=== PATIENT | male | born 1970 | race Caucasian/White ===

== ENCOUNTER 2020-05-05 04:38 | Inpatient (IN) | payer OTHER ==
[2020-05-05] MEDS ORDERED: DILTIAZEM DRIP BOLUS FROM BAG 1 MG SOLN IV ONE ×2 (05:00→06:10)
--- NOTE | 2020-05-05 05:00 | ED ---
Arrhythmia/Palpitations HPI - General Chief Complaint: Arrhythmia/Palpitations Stated Complaint: Irregular Heartbeat Time Seen by Provider: 05/05/20 04:42 Source: patient, RN notes reviewed, old records reviewed Mode of arrival: wheelchair - History of Present Illness Initial Comments: This is a 49-year-old male DF for evaluation patient Dese with multiple significantly elevated heart rate extremity edema swelling and weeping from both wounds. Patient thinks he may get more visible when he did change his socks. Patient is limited pain to both legs but does have diminished feeling, increased swelling and redness. Shortness of breath with elevated heart rate tonight. MD Complaint: rapid heart beat, "heart racing", palpitations, atrial fibrillat ion -: hour(s) Context: occurred during rest Arrhythmia History: atrial fibrillation Associated Symptoms: chest pain, shortness of breath Treatments Prior to Arrival: vagal maneuvers - Related Data Home Medications Medication Instructions Recorded Confirmed Amoxicillin 500 mg PO DAILY 05/05/20 05/05/20 Furosemide [Lasix] 20 mg PO BID 05/05/20 05/05/20 Losartan Potassium [Cozaar] 50 mg PO DAILY 05/05/20 05/05/20 Metoprolol Tartrate [Lopressor] 50 mg PO BID-W/MEALS 05/05/20 05/05/20 Rivaroxaban [Xarelto] 20 mg PO HS 05/05/20 05/05/20 Allergies Allergy/AdvReac Type Severity Reaction Status Date / Time No Known Allergies Allergy Verified 05/05/20 07:56 Review of Systems ROS Statement: Those systems with pertinent positive or pertinent negative responses have been documented in the HPI. ROS Other: All systems not noted in ROS Statement are negative. Past Medical History Past Medical History: Atrial Fibrillation, Hypertension History of Any Multi-Drug Resistant Organisms: None Reported Past Surgical History: Cardiac Valve Replacement Past Psychological History: No Psychological Hx Reported Smoking Status: Never smoker Past Alcohol Use History: None Reported Past Drug Use History: None Reported General Exam General appearance: alert, in no apparent distress Head exam: Present: atraumatic, normocephalic, normal inspection Eye exam: Present: normal appearance, PERRL, EOMI. Absent: scleral icterus, conjunctival injection, periorbital swelling ENT exam: Present: normal exam, mucous membranes moist Neck exam: Present: normal inspection. Absent: tenderness, meningismus, lymphadenopathy Respiratory exam: Present: normal lung sounds bilaterally. Absent: respiratory distress, wheezes, rales, rhonchi, stridor Cardiovascular Exam: Present: tachycardia, irregular rhythm, normal heart sounds. Absent: systolic murmur, diastolic murmur, rubs, gallop, clicks GI/Abdominal exam: Present: soft, normal bowel sounds. Absent: distended, tenderness, guarding, rebound, rigid Extremities exam: Present: normal inspection, full ROM, pedal edema, joint swelling, other (Red and erythematous with weeping wounds). Absent: tenderness, calf tenderness Back exam: Present: normal inspection Neurological exam: Present: alert, oriented X3, CN II-XII intact Psychiatric exam: Present: normal affect, normal mood Skin exam: Present: warm, dry, intact, normal color. Absent: rash Course Vital Signs 05/05/20 05/05/20 05/05/20 04:41 05:09 05:35 Temperature 99.2 F Pulse Rate 50 L 168 H 122 H Pulse Rate [ Pulse Oximetery ] Respiratory 18 18 16 Rate Blood Pressure 156/120 101/89 66/41 Blood Pressure [Right Arm] O2 Sat by Pulse 96 96 Oximetry 05/05/20 05/05/20 05/05/20 05:38 06:12 06:46 Temperature Pulse Rate 105 H 100 Pulse Rate [ Pulse Oximetery ] Respiratory 16 Rate Blood Pressure 118/79 134/95 125/85 Blood Pressure [Right Arm] O2 Sat by Pulse 97 Oximetry 05/05/20 05/05/20 05/05/20 08:00 11:49 11:50 Temperature 98.6 F 98.2 F Pulse Rate Pulse Rate [ 105 H 82 82 Pulse Oximetery ] Respiratory 20 18 18 Rate Blood Pressure Blood Pressure 137/62 126/77 [Right Arm] O2 Sat by Pulse 96 96 Oximetry 05/05/20 15:20 Temperature 99.1 F Pulse Rate Pulse Rate [ 83 Pulse Oximetery ] Respiratory 18 Rate Blood Pressure Blood Pressure 115/68 [Right Arm] O2 Sat by Pulse 94 L Oximetry - Reevaluation(s) Reevaluation #1: 05/05/20 06:15 Medical records reviewed Reevaluation #2: 05/05/20 06:15 Symptoms mildly improved with improved heart rate control, pain in legs improved Patient continues to improve her - Consultations Consultation #1: Spoke with sound who agrees to admit this patient EKG Findings - EKG Comments: EKG Findings:: EKG is A. fib with RVR 132 QRS 124 QTc 512 Medical Decision Making - Medical Decision Making 49 female DF for arrhythmia A. fib with RVR also has bilateral lower extremity weeping leg wounds and cellulitis, we will treat with IV antibiotics - Lab Data Result diagrams: 05/05/20 05:27 05/05/20 05:30 Lab Results 05/05/20 05/05/20 05/05/20 Range/Units 05:27 05:27 05:30 WBC 10.8 H (3.8-10.6) k/uL RBC 4.16 L (4.30-5.90) m/uL Hgb 15.1 (13.0-17.5) gm/dL Hct 45.3 (39.0-53.0) % MCV 109.0 H (80.0-100.0) fL MCH 36.3 H (25.0-35.0) pg MCHC 33.3 (31.0-37.0) g/dL RDW 15.1 (11.5-15.5) % Plt Count 238 (150-450) k/uL Neutrophils % 82 % Lymphocytes % 8 % Monocytes % 6 % Eosinophils % 1 % Basophils % 1 % Neutrophils # 8.9 H (1.3-7.7) k/uL Lymphocytes # 0.9 L (1.0-4.8) k/uL Monocytes # 0.6 (0-1.0) k/uL Eosinophils # 0.2 (0-0.7) k/uL Basophils # 0.1 (0-0.2) k/uL Macrocytosis Marked A PT 12.4 H (9.0-12.0) sec INR 1.2 H (<1.2) APTT 23.5 (22.0-30.0) sec Sodium (137-145) mmol/L Potassium (3.5-5.1) mmol/L Chloride (98-107) mmol/L Carbon Dioxide (22-30) mmol/L Anion Gap mmol/L BUN (9-20) mg/dL Creatinine (0.66-1.25) mg/dL Est GFR (CKD-EPI)AfAm (>60 ml/min/1.73 sqM) Est GFR (CKD-EPI)NonAf (>60 ml/min/1.73 sqM) Glucose (74-99) mg/dL Plasma Lactic Acid Aaron (0.7-2.0) mmol/L Calcium (8.4-10.2) mg/dL Phosphorus (2.5-4.5) mg/dL Magnesium (1.6-2.3) mg/dL Total Bilirubin (0.2-1.3) mg/dL AST (17-59) U/L ALT (4-49) U/L Alkaline Phosphatase (38-126) U/L Creatine Kinase (55-170) U/L Troponin I <0.012 (0.000-0.034) ng/mL NT-Pro-B Natriuret Pep pg/mL Total Protein (6.3-8.2) g/dL Albumin (3.5-5.0) g/dL TSH (0.465-4.680) mIU/L Urine Color Urine Appearance (Clear) Urine pH (5.0-8.0) Ur Specific [place] (1.001-1.035) Urine Protein (Negative) Urine Glucose (UA) (Negative) Urine Ketones (Negative) Urine Blood (Negative) Urine Nitrite (Negative) Urine Bilirubin (Negative) Urine Urobilinogen (<2.0) mg/dL Ur Leukocyte Esterase (Negative) 05/05/20 05/05/20 05/05/20 Range/Units 05:30 05:30 05:30 WBC (3.8-10.6) k/uL RBC (4.30-5.90) m/uL Hgb (13.0-17.5) gm/dL Hct (39.0-53.0) % MCV (80.0-100.0) fL MCH (25.0-35.0) pg MCHC (31.0-37.0) g/dL RDW (11.5-15.5) % Plt Count (150-450) k/uL Neutrophils % % Lymphocytes % % Monocytes % % Eosinophils % % Basophils % % Neutrophils # (1.3-7.7) k/uL Lymphocytes # (1.0-4.8) k/uL Monocytes # (0-1.0) k/uL Eosinophils # (0-0.7) k/uL Basophils # (0-0.2) k/uL Macrocytosis PT (9.0-12.0) sec INR (<1.2) APTT (22.0-30.0) sec Sodium 136 L (137-145) mmol/L Potassium 4.2 (3.5-5.1) mmol/L Chloride 105 (98-107) mmol/L Carbon Dioxide 20 L (22-30) mmol/L Anion Gap 11 mmol/L BUN 26 H (9-20) mg/dL Creatinine 1.07 (0.66-1.25) mg/dL Est GFR (CKD-EPI)AfAm >90 (>60 ml/min/1.73 sqM) Est GFR (CKD-EPI)NonAf 81 (>60 ml/min/1.73 sqM) Glucose 105 H (74-99) mg/dL Plasma Lactic Acid Aaron 1.3 (0.7-2.0) mmol/L Calcium 8.8 (8.4-10.2) mg/dL Phosphorus 3.5 (2.5-4.5) mg/dL Magnesium 1.6 (1.6-2.3) mg/dL Total Bilirubin 1.4 H (0.2-1.3) mg/dL AST 28 (17-59) U/L ALT 21 (4-49) U/L Alkaline Phosphatase 87 (38-126) U/L Creatine Kinase 45 L (55-170) U/L Troponin I (0.000-0.034) ng/mL NT-Pro-B Natriuret Pep pg/mL Total Protein 6.6 (6.3-8.2) g/dL Albumin 4.0 (3.5-5.0) g/dL TSH 1.710 (0.465-4.680) mIU/L Urine Color Light Yellow Urine Appearance Clear (Clear) Urine pH 5.0 (5.0-8.0) Ur Specific [place] 1.008 (1.001-1.035) Urine Protein Negative (Negative) Urine Glucose (UA) Negative (Negative) Urine Ketones Negative (Negative) Urine Blood Negative (Negative) Urine Nitrite Negative (Negative) Urine Bilirubin Negative (Negative) Urine Urobilinogen <2.0 (<2.0) mg/dL Ur Leukocyte Esterase Negative (Negative) 05/05/20 Range/Units 05:30 WBC (3.8-10.6) k/uL RBC (4.30-5.90) m/uL Hgb (13.0-17.5) gm/dL Hct (39.0-53.0) % MCV (80.0-100.0) fL MCH (25.0-35.0) pg MCHC (31.0-37.0) g/dL RDW (11.5-15.5) % Plt Count (150-450) k/uL Neutrophils % % Lymphocytes % % Monocytes % % Eosinophils % % Basophils % % Neutrophils # (1.3-7.7) k/uL Lymphocytes # (1.0-4.8) k/uL Monocytes # (0-1.0) k/uL Eosinophils # (0-0.7) k/uL Basophils # (0-0.2) k/uL Macrocytosis PT (9.0-12.0) sec INR (<1.2) APTT (22.0-30.0) sec Sodium (137-145) mmol/L Potassium (3.5-5.1) mmol/L Chloride (98-107) mmol/L Carbon Dioxide (22-30) mmol/L Anion Gap mmol/L BUN (9-20) mg/dL Creatinine (0.66-1.25) mg/dL Est GFR (CKD-EPI)AfAm (>60 ml/min/1.73 sqM) Est GFR (CKD-EPI)NonAf (>60 ml/min/1.73 sqM) Glucose (74-99) mg/dL Plasma Lactic Acid Aaron (0.7-2.0) mmol/L Calcium (8.4-10.2) mg/dL Phosphorus (2.5-4.5) mg/dL Magnesium (1.6-2.3) mg/dL Total Bilirubin (0.2-1.3) mg/dL AST (17-59) U/L ALT (4-49) U/L Alkaline Phosphatase (38-126) U/L Creatine Kinase (55-170) U/L Troponin I (0.000-0.034) ng/mL NT-Pro-B Natriuret Pep 1760 pg/mL Total Protein (6.3-8.2) g/dL Albumin (3.5-5.0) g/dL TSH (0.465-4.680) mIU/L Urine Color Urine Appearance (Clear) Urine pH (5.0-8.0) Ur Specific [place] (1.001-1.035) Urine Protein (Negative) Urine Glucose (UA) (Negative) Urine Ketones (Negative) Urine Blood (Negative) Urine Nitrite (Negative) Urine Bilirubin (Negative) Urine Urobilinogen (<2.0) mg/dL Ur Leukocyte Esterase (Negative) - Radiology Data Radiology results: report reviewed (Chest x-ray is negative for acute disease), image reviewed Critical Care Time Critical Care Time: Yes Total Critical Care Time: 31 Disposition Clinical Impression: Atrial fibrillation, Atrial fibrillation with RVR, Bilateral lower leg cellulitis Disposition: ADMITTED IP TO THIS [facility] Condition: Good Is patient prescribed a controlled substance at d/c from ED?: No
[2020-05-05] MEDS: DILTIAZEM 125 MG in SODIUM CHLORIDE 0.9% 100 ML IV SCH (05:31)
[2020-05-05 05:37] LABS: Basophils # (A) 0.1 k/uL (0-0.2); Basophils % (A) 1 %; Eosinophils # (A) 0.2 k/uL (0-0.7); Eosinophils % (A) 1 %; HCT 45.3 % (39.0-53.0); HGB 15.1 gm/dL (13.0-17.5); Lymphocytes # (A) 0.9 k/uL (1.0-4.8); Lymphocytes % (A) 8 %; MCH 36.3 pg (25.0-35.0); MCHC 33.3 g/dL (31.0-37.0); Macrocytosis Marked; Mean Platelet Volume 6.9; Monocytes # (A) 0.6 k/uL (0-1.0); Monocytes % (A) 6 %; Neutrophils # (A) 8.9 k/uL (1.3-7.7); Neutrophils % (A) 82 %; Platelet Count 238 k/uL (150-450); RBC 4.16 m/uL (4.30-5.90); RDW 15.1 % (11.5-15.5); WBC 10.8 k/uL (3.8-10.6)
[2020-05-05 05:46] LABS: INR 1.2 (<1.2); Partial Thromboplastin Time 23.5 sec (22.0-30.0); Prothrombin Time 12.4 sec (9.0-12.0)
[2020-05-05 05:49] LABS: ALT 21 U/L (4-49); AST 28 U/L (17-59); African American GFR (CKD) >90 (>60 ml/min/1.73 sqM); Alkaline Phosphatase 87 U/L (38-126); Anion Gap 11 mmol/L; Blood Urea Nitrogen 26 mg/dL (9-20); Calcium 8.8 mg/dL (8.4-10.2); Carbon Dioxide 20 mmol/L (22-30); Chloride 105 mmol/L (98-107); Creatine Kinase 45 U/L (55-170); Glucose 105 mg/dL (74-99); Magnesium 1.6 mg/dL (1.6-2.3); Non-African American GFR(CKD) 81 (>60 ml/min/1.73 sqM); Phosphorus 3.5 mg/dL (2.5-4.5); Potassium 4.2 mmol/L (3.5-5.1); Sodium 136 mmol/L (137-145); Total Bilirubin 1.4 mg/dL (0.2-1.3); Total Protein 6.6 g/dL (6.3-8.2)
[2020-05-05] MEDS ORDERED: MORPHINE SULFATE 4 MG/ML SYRINGE IVP PRN (06:10)
[2020-05-05] MEDS ORDERED: MORPHINE SULFATE 4 MG/ML SYRINGE IVP STA (06:10)
[2020-05-05] MEDS ORDERED: NITROGLYCERIN SL TABS 0.4 MG TAB SUBLINGUAL PRN (06:13)
--- NOTE | 2020-05-05 06:49 | XR ---
EXAMINATION TYPE: XR chest 2V DATE OF EXAM: 05/05/2020 COMPARISON: NONE HISTORY: Weakness TECHNIQUE: 2 views FINDINGS: Heart is enlarged. There are sternal wires. There is no heart failure. Costophrenic angles are clear. There are no hilar masses. There is possible loculated pleural fluid on the posterior lowe r chest wall on the lateral view. IMPRESSION: Moderate cardiomegaly. No heart failure seen. No pulmonary consolidation. Bilateral poste rior pleural thickening or fluid at the lung bases.
[2020-05-05] MEDS ORDERED: FUROSEMIDE 10 MG/ML 4 ML VIAL IV STA (09:22)
[2020-05-05] MEDS: METOPROLOL TARTRATE 50 MG TAB PO SCH ×2 (09:48→21:08)
--- NOTE | 2020-05-05 12:15 | ECHOF ---
Referral Reason:chf MEASUREMENTS -------- HEIGHT: 180.3 cm WEIGHT: 163.3 kg BP: 137/62 IVSd: 2.0 cm (0.6 - 1.1) LVIDd: 4.1 cm (3.9 - 5.3) LVPWd: 1.8 cm (0.6 - 1.1) IVSs: 1.8 cm LVIDs: 2.4 cm LVPWs: 1.8 cm Ao Diam: 3.4 cm (2.0 - 3.7) AV Cusp: 2.0 cm (1.5 - 2.6) LA Diam: 8.1 cm (2.7 - 3.8) FINDINGS -------- Atrial fibrillation. This was a technically difficult study with suboptimal views. The left ventricular size is normal. There is moderate concentric left ventricular hypertrophy. O verall left ventricular systolic function is low-normal with, an EF between 50 - 55 %. Left ventric ular fillimg pressure cannot be estimated due to Atrial fibrillation. Septal wall motion is delayed and consistent with prior cardiac surgery. The RV was not well visualized. The left atrium is moderately dilated. The right atrium was not well visualized. 5.0mg of Lumason was utilized for enhancement of images Interatrial and interventricular septum intact. The aortic valve was not well visualized. Probably n ormal porcine bioprosthetic aortic valve. YUKI t o better visualise if necessary. The mitral valve was not well visualized. The tricuspid valve was not well visualized. Unable to estimate RVSP due to inadequate TR jet spect ral doppler profile. The pulmonic valve was not well visualized. The aortic root size is normal. IVC Not well visulized. There is no pericardial effusion. CONCLUSIONS -------- 1. The left ventricular size is normal. 2. There is moderate concentric left ventricular hypertrophy. 3. Overall left ventricular systolic function is low-normal with, an EF between 50 - 55 %. 4. Left ventricular fillimg pressure cannot be estimated due to Atrial fibrillation. 5. Septal wall motion is delayed and consistent with prior cardiac surgery. 6. The left atrium is moderately dilated. SHAKE CUTTER: Jerri Coyle RDCS
--- NOTE | 2020-05-05 14:55 | CONS ---
CONSULTATION CHIEF COMPLAINT: Atrial fibrillation with rapid ventricular rate and shortness of breath. This is a 49-year-old gentleman with history of aortic valve replacement, hypertension, morbid obesity, permanent atrial fibrillation, who lives in [place] and is currently in [place] because of work, came to hospital complaining of worsening leg edema, shortness of breath and palpitations. He was found to be in atrial fibrillation with rapid ventricular rate and has severe bilateral leg edema and Cardiology has been consulted for the same. Patient denies chest pain or difficulty in breathing. There is no history of PND or orthopnea. The patient has been somewhat noncompliant with his medications. He states that he did not take his Lasix for a while. At the time of my evaluation, his heart rate is around 100 beats per minute. He is on Cardizem drip. He is also on metoprolol and has been started on antibiotic because of cellulitis involving both lower extremities. The patient's clinical presentation is consistent with acute exacerbation of chronic congestive heart failure, whether it is systolic or diastolic we do not know, will do an echocardiogram to estimate the same. His BNP is elevated at 1762. The troponin is negative. INR is 1.2, hemoglobin is 15.1, potassium is 4.2, and creatinine is 1. PAST MEDICAL HISTORY: Significant for persistent atrial fibrillation, aortic valve replacement, congestive heart failure, hypertension. MEDICATIONS: At home included Lasix 20 b.i.d., Xarelto 20 q/ daily, Lopressor 50 b.i.d., Cozaar 50 q. daily, and amoxicillin. ALLERGIES: No known drug allergies. FAMILY HISTORY: Negative for premature coronary artery disease. SOCIAL HISTORY: Negative for current smoking, EtOH abuse, or drug abuse. REVIEW OF SYSTEMS: HEENT: Unremarkable. CARDIAC: As described above. RESPIRATORY: As described above. GI: Negative. GENITOURINARY Negative, ALLERGY/IMMUNOLOGY: Negative. SKIN: Significant for cellulitis both lower extremities. MUSCULOSKELETAL: Negative. ENDOCRINE: Negative. HEMATOLOGICAL: Negative. DERM: As described above. CONSTITUTIONAL: Negative. Rest of the system review is not relevant. PHYSICAL EXAMINATION: Heart rate is 105 beats per minute. Blood pressure is 137/60, respiratory rate is 18. There is no jugular venous distention. Carotid upstroke is normal. There is no bruit. Chest exam reveals good air entry bilaterally. Heart exam reveals first and second heart sounds, irregular rhythm and an ejection systolic murmur in the aortic area. Abdomen is soft. Exam of extremities reveals bilateral pitting edema and chronic stasis changes over the skin and there is breakdown of the skin with some oozing. Labs are as described above. EKG shows atrial fibrillation with left bundle branch block and nonspecific ST-T wave changes. Chest x-ray showed cardiomegaly without any evidence of pulmonary congestion. ASSESSMENT: 1. Acute exacerbation of chronic congestive heart failure. 2. Persistent atrial fibrillation with poorly controlled ventricular rate. 3. History of aortic valve replacement. PLAN: I will treat the patient with IV Lasix. Continue Cardizem for rate control. Continue Lopressor. Once heart rate is well controlled we can stop the Cardizem. Resume the Xarelto and obtain a 2D echo. MMODL / IJN: [id number] /
[2020-05-05] MEDS ORDERED: Magnesium Replacement Protocol 1 EACH MISC MISCELLANE PRN (15:23)
[2020-05-05] MEDS ORDERED: Potassium Replacement Protocol 1 EACH MISC MISCELLANE PRN (15:23)
--- NOTE | 2020-05-05 15:30 | P.HPIM ---
History of Present Illness H&P Date: 05/05/20 This is a 49-year-old male with complex past medical history noted below significant for coronary artery disease, chronic atrial fibrillation, and history of aortic valve replacement who presented to the emergency room with chest tightness and worsening lower extremity edema. Patient admitted that he did not take his medication regularly for the past few days. Patient reported that his shortness of breath was gradually getting worse. He denies any chest pain. He said his heart pounding and he noted that he was in A. fib. He was also complaining of worsening bilateral lower extremity edema ongoing for the past few weeks. Patient was evaluated in the ER and was found to be in atrial fibrillation with rapid ventricular response. He was started on IV Cardizem drip and admitted to the hospital for further management. Patient denies any fevers or chills. No chest pain. No cough. Review of Systems Review of system: 14 points review of systems were obtained and were negative except to what were mentioned in the HPI. Past Medical History Past Medical History: Atrial Fibrillation, Hypertension History of Any Multi-Drug Resistant Organisms: None Reported Past Surgical History: Cardiac Valve Replacement Past Psychological History: No Psychological Hx Reported Smoking Status: Former smoker Past Alcohol Use History: None Reported Past Drug Use History: None Reported Medications and Allergies Home Medications Medication Instructions Recorded Confirmed Type Amoxicillin 500 mg PO DAILY 05/05/20 05/05/20 History Furosemide [Lasix] 20 mg PO BID 05/05/20 05/05/20 History Losartan Potassium [Cozaar] 50 mg PO DAILY 05/05/20 05/05/20 History Metoprolol Tartrate [Lopressor] 50 mg PO BID-W/MEALS 05/05/20 05/05/20 History Rivaroxaban [Xarelto] 20 mg PO HS 05/05/20 05/05/20 History Allergies Allergy/AdvReac Type Severity Reaction Status Date / Time No Known Allergies Allergy Verified 05/05/20 07:56 Physical Exam Vitals: Vital Signs Temp Pulse Pulse Resp BP BP Pulse Ox 05/05/20 11:50 82 18 05/05/20 11:49 98.2 F 82 18 126/77 96 05/05/20 08:00 98.6 F 105 H 20 137/62 96 05/05/20 06:46 100 16 125/85 97 05/05/20 06:12 105 H 134/95 05/05/20 05:38 118/79 05/05/20 05:35 122 H 16 66/41 05/05/20 05:09 168 H 18 101/89 96 05/05/20 04:41 99.2 F 50 L 18 156/120 96 Intake and Output 05/05/20 05/05/20 05/05/20 06:59 14:59 22:59 Other: Weight 163.293 kg General: The patient is awake and alert, in no distress Eye: there is normal conjunctiva bilaterally. Neck: The neck is supple, there is no JVD. Cardiovascular: Normal S1-S2, no S3-S4, no murmurs. Respiratory: Lungs with scattered crackles Gastrointestinal: Abdomen is soft, nontender Musculoskeletal: There is +3 pitting edema up to the knees bilaterally with chronic venous insufficiency skin discoloration Neurological:. Speech is normal. Skin: Skin is warm and dry Results CBC & Chem 7: 05/05/20 05:27 05/05/20 05:30 Labs: Abnormal Lab Results - Last 24 Hours (Table) 05/05/20 05/05/20 05/05/20 Range/Units 05:27 05:30 05:30 WBC 10.8 H (3.8-10.6) k/uL RBC 4.16 L (4.30-5.90) m/uL MCV 109.0 H (80.0-100.0) fL MCH 36.3 H (25.0-35.0) pg Neutrophils # 8.9 H (1.3-7.7) k/uL Lymphocytes # 0.9 L (1.0-4.8) k/uL Macrocytosis Marked A PT 12.4 H (9.0-12.0) sec INR 1.2 H (<1.2) Sodium 136 L (137-145) mmol/L Carbon Dioxide 20 L (22-30) mmol/L BUN 26 H (9-20) mg/dL Glucose 105 H (74-99) mg/dL Total Bilirubin 1.4 H (0.2-1.3) mg/dL Creatine Kinase 45 L (55-170) U/L Assessment and Plan Assessment: 1. Acute diastolic heart failure exacerbation, started on IV Lasix 40 mg every 8 hours. Strict I's and O's. Daily weights. Echocardiogram showed preserved EF of 55%. 2. Atrial fibrillation with rapid ventricular response, on anticoagulation with Rivaroxaban. Patient was started on IV Cardizem drip and home dose of metoprolol. Thyroid function test normal. Cardiology consulted and following, appreciate recommendations. 3. Sepsis without septic shock: Mild. We'll continue antibiotic awaiting blood culture. Lactic acid normal. Avoid IV fluids given anasarca. 4. Bilateral lower extremity cellulitis probably exacerbated by edema, we will continue IV cefazolin. Local wound care. Infectious disease consulted. 5. Bilateral lower extremity swelling, probably secondary to underlying diastolic heart failure. DVT less likely as patient is on anticoagulation with Rivaroxaban report noncompliance. We will obtain ultrasound for further evaluation. 6. Chronic medical problems include history of aortic valve replacement, essential hypertension, morbid obesity
[2020-05-05] MEDS: MORPHINE SULFATE 2 MG/ML SYRINGE IVP PRN ×2 (16:48→21:08)
[2020-05-05 17:25] LABS: Appearance,Urine Clear (Clear); Bilirubin,Urine Negative (Negative); Blood,Urine Negative (Negative); Color,Urine Light Yellow; Glucose,Urine (UA) Negative (Negative); Ketones,Urine Negative (Negative); Leukocyte Esterase,Urine Negative (Negative); Nitrite,Urine Negative (Negative); Protein,Urine Negative (Negative); Specific Gravity,Urine 1.008 (1.001-1.035); Urobilinogen,Urine <2.0 mg/dL (<2.0)
[2020-05-05] MEDS: FUROSEMIDE 10 MG/ML 4 ML VIAL IV SCH (17:57)
[2020-05-05] MEDS: RIVAROXABAN 20 MG TAB PO SCH (17:57)
--- NOTE | 2020-05-05 18:29 | US ---
EXAMINATION TYPE: US venous doppler duplex LE BI DATE OF EXAM: 05/05/2020 4:59 PM COMPARISON: NONE CLINICAL HISTORY: r/o DVT. US exam is technically limited by large body habitus at 360lbs. Bilateral LE ulcerations x 5 days. SIDE PERFORMED: Bilateral TECHNIQUE: The lower extremity deep venous system is examined utilizing real time linear array sonog cynthia with graded compression, doppler sonography and color-flow sonography. VESSELS IMAGED: Common Femoral Vein Deep Femoral Vein Greater Saphenous Vein * Femoral Vein Popliteal Vein Small Saphenous Vein * Bilateral LE edema channels are noted superficially. Right Leg: Negative for DVT as technologist was able to assess. Left Leg: Negative for DVT as technologist was able to assess. There is normal flow, compressibility, vascular waveforms. IMPRESSION: No evident deep venous arthrosis at or above the knees within the limitations the exam, l ower extremity edema, correlate for cellulitis, follow-up as indicated
[2020-05-06] MEDS: FUROSEMIDE 10 MG/ML 4 ML VIAL IV SCH ×4 (00:04→23:42)
[2020-05-06] MEDS: DILTIAZEM 125 MG in SODIUM CHLORIDE 0.9% 100 ML IV SCH (00:05)
--- NOTE | 2020-05-06 00:06 | P.CONS ---
History of Present Illness - Reason for Consult Consult date: 05/05/20 Lower extremity wound and cellulitis Requesting physician: Michelet Arreaga - Chief Complaint Lower extremity swelling and shortness of breath x few days - History of Present Illness Patient is a 49-year-old male with a past medical history significant for hypertension , aortic valve replacement, in this patient in this patient Presenting to the ER with chief complaints of increasing shortness of breath palpitation along with increasing swelling to the lower extremity blister formation subsequently did have consideration and mention there was some evidence of maggot infestation of his left leg wounds, patient is complaining of increasing shortness of breath and been getting worse for the last few days also complaining of palpitations and some chest discomfort patient also having increasing swelling of the lower extremity which has been more marked on the left leg and did have superficial ulceration patient be complaining of pain to the left leg wound area to be more of a dull aching at times sharp about 5 out of 10 and no radiation did have minimal drainage from it patient has been evaluated by the physician patient did have a low-grade fever white count was not significantly elevated lower extremity Doppler has been ordered patient was started on cefazolin and infectious disease was consulted for further management of antibiotic therapy Review of Systems Positive point has been mentioned in the HPI rest of the systems are negative Past Medical History Past Medical History: Atrial Fibrillation, Hypertension History of Any Multi-Drug Resistant Organisms: None Reported Past Surgical History: Cardiac Valve Replacement Past Psychological History: No Psychological Hx Reported Smoking Status: Former smoker Past Alcohol Use History: None Reported Past Drug Use History: None Reported Medications and Allergies Home Medications Medication Instructions Recorded Confirmed Type Amoxicillin 500 mg PO DAILY 05/05/20 05/05/20 History Furosemide [Lasix] 20 mg PO BID 05/05/20 05/05/20 History Losartan Potassium [Cozaar] 50 mg PO DAILY 05/05/20 05/05/20 History Metoprolol Tartrate [Lopressor] 50 mg PO BID-W/MEALS 05/05/20 05/05/20 History Rivaroxaban [Xarelto] 20 mg PO HS 05/05/20 05/05/20 History Allergies Allergy/AdvReac Type Severity Reaction Status Date / Time No Known Allergies Allergy Verified 05/05/20 07:56 Physical Exam Vitals: Vital Signs Temp Pulse Pulse Resp BP BP Pulse Ox 07/29/20 11:50 82 18 05/05/20 11:49 98.2 F 82 18 126/77 96 05/05/20 08:00 98.6 F 105 H 20 137/62 96 05/05/20 06:46 100 16 125/85 97 05/05/20 06:12 105 H 134/95 05/05/20 05:38 118/79 05/05/20 05:35 122 H 16 66/41 05/05/20 05:09 168 H 18 101/89 96 05/05/20 04:41 99.2 F 50 L 18 156/120 96 Intake and Output 05/05/20 05/05/20 05/05/20 06:59 14:59 22:59 Output Total 1800 Balance -1800 Output: Urine 1800 Other: Weight 163.293 kg GENERAL DESCRIPTION: Middle-aged male lying in bed, no distress. No tachypnea or accessory muscle of respiration use. HEENT: Shows Pallor , no scleral icterus. Oral mucous membrane is dry. No pharyngeal erythema or thrush NECK: Trachea central, no thyromegaly. LUNGS: Unlabored breathing. Decreased breath sound at the base. No wheeze or crackle. HEART: S1, S2, regular rate and rhythm. No loud murmur ABDOMEN: Soft, no tenderness , guarding or rigidity, no organomegaly EXTREMITIES: Diffuse swelling of lower extremity with superficial ulceration some surrounding redness no foul-smelling drainage. SKIN: No rash, no masses palpable. NEUROLOGICAL: The patient is awake, alert, oriented x3, mood and affect normal. Results CBC & Chem 7: 05/05/20 05:27 05/05/20 05:30 Labs: Abnormal Lab Results - Last 24 Hours (Table) 05/05/20 05/05/20 05/05/20 Range/Units 05:27 05:30 05:30 WBC 10.8 H (3.8-10.6) k/uL RBC 4.16 L (4.30-5.90) m/uL MCV 109.0 H (80.0-100.0) fL MCH 36.3 H (25.0-35.0) pg Neutrophils # 8.9 H (1.3-7.7) k/uL Lymphocytes # 0.9 L (1.0-4.8) k/uL Macrocytosis Marked A PT 12.4 H (9.0-12.0) sec INR 1.2 H (<1.2) Sodium 136 L (137-145) mmol/L Carbon Dioxide 20 L (22-30) mmol/L BUN 26 H (9-20) mg/dL Glucose 105 H (74-99) mg/dL Total Bilirubin 1.4 H (0.2-1.3) mg/dL Creatine Kinase 45 L (55-170) U/L Assessment and Plan Assessment: 1- patient with bilateral lower extremity cellulitis in this patient who did have diffuse swelling of the lower extremity with evidence of fluid overload also superficial ulceration from ruptured blister likely representing streptococcal cellulitis (1) Open wound of both lower extremities with complication Current Visit: Yes Status: Acute Code(s): S81.801A - UNSPECIFIED OPEN WOUND, RIGHT LOWER LEG, INITIAL ENCOUNTER; S81.802A - UNSPECIFIED OPEN WOUND, LEFT LOWER LEG, INITIAL ENCOUNTER SNOMED Code(s): 39599107 (2) Bilateral lower leg cellulitis Current Visit: Yes Status: Acute Code(s): L03.116 - CELLULITIS OF LEFT LOWER LIMB; L03.115 - CELLULITIS OF RIGHT LOWER LIMB SNOMED Code(s): 611500836 Plan: 1- cefazolin 2 g every 8 hours 2- local wound care with dry Aquacel silver dressing and Kayode wrap from just above the toe to below the knee We will follow on clinical condition and cultures to further adjust medication if needed Thank you for this consultation will follow this patient with you Time with Patient: Greater than 30
[2020-05-06] MEDS: MORPHINE SULFATE 2 MG/ML SYRINGE IVP PRN (06:22)
[2020-05-06 06:45] LABS: African American GFR (CKD) >90 (>60 ml/min/1.73 sqM); Anion Gap 9 mmol/L; Blood Urea Nitrogen 26 mg/dL (9-20); Calcium 8.3 mg/dL (8.4-10.2); Carbon Dioxide 26 mmol/L (22-30); Chloride 102 mmol/L (98-107); Cholesterol 129 mg/dL (<200); Glucose 100 mg/dL (74-99); HDL Cholesterol 24 mg/dL (40-60); LDL Cholesterol,Calculated 77 mg/dL (0-99); Magnesium 1.6 mg/dL (1.6-2.3); Non-African American GFR(CKD) >90 (>60 ml/min/1.73 sqM); Potassium 4.3 mmol/L (3.5-5.1); Sodium 137 mmol/L (137-145); Triglycerides 141 mg/dL (<150)
[2020-05-06] MEDS ORDERED: Magnesium Replacement Protocol 1 EACH MISC MISCELLANE PRN (09:37)
[2020-05-06] MEDS ORDERED: Potassium Replacement Protocol 1 EACH MISC MISCELLANE PRN (09:37)
--- NOTE | 2020-05-06 09:44 | P.PN ---
Subjective Progress Note Date: 05/06/20 Patient is complaining that he is not satisfied with the pain control. He described the pain as burning in both feet. He denies any shortness of breath or chest pain. Objective - Vital Signs Vital signs: Vital Signs Temp 98.2 F 05/06/20 04:00 Pulse 73 05/06/20 04:00 Resp 16 05/06/20 04:00 BP 120/72 05/06/20 04:00 Pulse Ox 93 L 05/06/20 04:00 Intake & Output 05/05/20 05/06/20 05/06/20 18:59 06:59 18:59 Intake Total 672.833 225 Output Total 1800 2775 Balance -1800 -2102.167 225 Weight 177.7 kg Intake: Intake, IV Titration 192.833 Amount Diltiazem 125 mg In 92.833 Sodium Chloride 0.9% 100 ml @ 5 MG/HR 5 mls/hr IV .Q24H [facility] Rx#:[id number] ceFAZolin 2 gm In Sodium 100 Chloride 0.9% 50 ml @ 100 mls/hr IVPB Q8HR [facility] Rx# :[id number] Oral 480 225 Output: Urine 1800 2775 - Exam General: The patient is awake and alert, in no distress Eye: there is normal conjunctiva bilaterally. Neck: The neck is supple, there is no JVD. Cardiovascular: Normal S1-S2, no S3-S4, no murmurs. Respiratory: Lungs clear to auscultation bilaterally Gastrointestinal: Abdomen is soft, nontender Musculoskeletal: There is +3 pitting edema up to the knee. Both legs wrapped with clean dressing/Kayode wrap Neurological:. Speech is normal. Skin: Skin is warm and dry - Labs CBC & Chem 7: 05/05/20 05:27 05/06/20 06:02 Labs: Abnormal Lab Results - Last 24 Hours (Table) 05/06/20 Range/Units 06:02 BUN 26 H (9-20) mg/dL Glucose 100 H (74-99) mg/dL Calcium 8.3 L (8.4-10.2) mg/dL HDL Cholesterol 24 L (40-60) mg/dL Assessment and Plan Assessment: 1. Acute diastolic heart failure exacerbation, started on IV Lasix 40 mg every 8 hours. Strict I's and O's. Daily weights. Echocardiogram showed preserved EF of 55%. 2. Atrial fibrillation with rapid ventricular response, on anticoagulation with Rivaroxaban. Patient was started on IV Cardizem drip and home dose of metoprolol. Thyroid function test normal. Cardiology consulted and following, appreciate recommendations. 3. Sepsis without septic shock: Mild. We'll continue antibiotic awaiting blood culture. Lactic acid normal. Avoid IV fluids given anasarca. 4. Bilateral lower extremity cellulitis probably exacerbated by edema, we will continue IV cefazolin. Local wound care. Infectious disease consulted. 5. Bilateral lower extremity swelling, secondary to underlying diastolic heart failure and chronic venous insufficiency. Ultrasound showed no evidence of DVT 6. Hypomagnesemia, magnesium replacement order 7. Chronic medical problems include history of aortic valve replacement, essential hypertension, morbid obesity Check bladder scan and measure postvoid residual Accurate daily weight discussed with nursing staff Repeat lab work in the morning
[2020-05-06] MEDS ORDERED: MAGNESIUM SULFATE-D5W PMX 1 GM in DEXTROSE/WATER 1 100ML.BAG IVPB ONE (09:45)
[2020-05-06] MEDS: ASPIRIN 325 MG TAB PO SCH (09:55)
[2020-05-06] MEDS: METOPROLOL TARTRATE 50 MG TAB PO SCH ×2 (09:55→19:42)
[2020-05-06] MEDS: HYDROmorphone 1 MG/ML 1 ML SYRINGE IVP PRN ×4 (10:00→23:48)
[2020-05-06] MEDS: LOSARTAN 25 MG TAB PO SCH (13:15)
--- NOTE | 2020-05-06 15:18 | PN ---
PROGRESS NOTE DATE OF SERVICE: 05/06/2020 REASON FOR FOLLOWUP: Bilateral lower extremity wounds and cellulitis. INTERVAL HISTORY: The patient is currently afebrile, has been breathing comfortably. The patient denies having any chest pain or shortness of breath or cough. Overall pain and discomfort to the left heel have slightly decreased. No drainage. No diarrhea. PHYSICAL EXAMINATION: Blood pressure 120/72 with a pulse of 73, temperature 98.2. He is 93% on room air. General description is a middle-aged male lying in bed in no distress. RESPIRATORY SYSTEM: Unlabored breathing. Clear to auscultation anteriorly. HEART: S1, S2. Regular rate and rhythm. ABDOMEN: Soft. No tenderness. Legs are currently wrapped up. No obvious drainage on the dressing. LABS: BUN of 26, creatinine 0.98. DIAGNOSTIC IMPRESSION AND PLAN: Patient with bilateral lower extremity cellulitis and wounds in this patient currently covered with cefazolin. Local wound care with dry Aquacel Silver dressing; to continue, and re-evaluate the wounds tomorrow at the time of dressing changes. Continue supportive care. MMODL / IJN: [id number] /
[2020-05-06] MEDS: RIVAROXABAN 20 MG TAB PO SCH (16:12)
[2020-05-06] MEDS: GABAPENTIN 100 MG CAP PO SCH ×2 (16:12→23:42)
--- NOTE | 2020-05-06 16:32 | PN ---
PROGRESS NOTE Salty is a 49-year-old gentleman with history of aortic valve replacement, hypertension and atrial fibrillation who presented to hospital with atrial fibrillation with poorly controlled ventricular rate and was in congestive heart failure. This morning, his heart rate is better controlled and he is hemodynamically stable. He is on IV Lasix 40 mg q.8 on IV Cardizem intravenous antibiotics and Xarelto. PHYSICAL EXAM: Heart rate is 73 beats per minute. Blood pressure is 120/70, respiratory rate is 18. There is no jugular venous distention. Chest exam reveals good air entry bilaterally. Heart exam reveals first and second heart sounds, irregular rhythm. Ejection systolic murmur in the aortic area. Abdomen is soft. Exam of extremities reveals bilateral pitting edema. LABS: Show that the potassium is 4.3, creatinine is 0.98. Troponins are negative. BNP is elevated. ASSESSMENT: 1. Acute exacerbation of chronic diastolic heart failure. 2. History of aortic valve replacement. 3. Permanent atrial fibrillation with poorly-controlled ventricular rate. PLAN: I am going to stop the IV Cardizem, continue with the Lopressor 50 b.i.d. If necessary go to 75 b.i.d. continue with the IV Lasix and will discharge him home on 40 b.i.d. of Lasix when the time comes. Continue with the losartan that he was on at home. MMODL / IJN: [id number] /
[2020-05-07 06:49] LABS: Basophils # (A) 0.1 k/uL (0-0.2); Basophils % (A) 1 %; Eosinophils # (A) 0.3 k/uL (0-0.7); Eosinophils % (A) 3 %; HCT 47.7 % (39.0-53.0); HGB 15.2 gm/dL (13.0-17.5); Lymphocytes # (A) 0.9 k/uL (1.0-4.8); Lymphocytes % (A) 11 %; MCH 35.5 pg (25.0-35.0); MCHC 31.9 g/dL (31.0-37.0); Macrocytosis Marked; Mean Platelet Volume 6.7; Monocytes # (A) 0.6 k/uL (0-1.0); Monocytes % (A) 7 %; Neutrophils # (A) 6.5 k/uL (1.3-7.7); Neutrophils % (A) 77 %; Platelet Count 218 k/uL (150-450); RBC 4.29 m/uL (4.30-5.90); WBC 8.5 k/uL (3.8-10.6)
[2020-05-07 06:51] LABS: MCV 111.3 fL (80.0-100.0)
[2020-05-07 07:06] LABS: African American GFR (CKD) >90 (>60 ml/min/1.73 sqM); Anion Gap 9 mmol/L; Blood Urea Nitrogen 31 mg/dL (9-20); Calcium 8.4 mg/dL (8.4-10.2); Carbon Dioxide 26 mmol/L (22-30); Chloride 102 mmol/L (98-107); Glucose 109 mg/dL (74-99); Magnesium 1.9 mg/dL (1.6-2.3); Non-African American GFR(CKD) >90 (>60 ml/min/1.73 sqM); Potassium 4.5 mmol/L (3.5-5.1); Sodium 137 mmol/L (137-145)
[2020-05-07] MEDS: GABAPENTIN 100 MG CAP PO SCH ×3 (08:31→22:22)
[2020-05-07] MEDS: FUROSEMIDE 10 MG/ML 4 ML VIAL IV SCH (08:31)
[2020-05-07] MEDS: METOPROLOL TARTRATE 50 MG TAB PO SCH ×2 (08:31→22:22)
[2020-05-07] MEDS: LOSARTAN 25 MG TAB PO SCH (08:31)
[2020-05-07] MEDS: HYDROmorphone 1 MG/ML 1 ML SYRINGE IVP PRN ×2 (08:32→17:32)
--- NOTE | 2020-05-07 09:28 | P.PN ---
Subjective Patient is awake and alert. Pain is better controlled. No acute events overnight reported by nursing staff. Objective - Vital Signs Vital signs: Vital Signs Temp 98.2 F 05/07/20 04:20 Pulse 87 05/07/20 04:20 Resp 20 05/07/20 04:20 BP 116/71 05/07/20 04:20 Pulse Ox 95 05/07/20 04:20 Intake & Output 05/06/20 05/07/20 05/07/20 18:59 06:59 18:59 Intake Total 900 340 360 Output Total 2150 1025 Balance -1250 -685 360 Weight 177.4 kg Intake: Intake, IV Titration 100 Amount ceFAZolin 2 gm In Sodium 100 Chloride 0.9% 50 ml @ 100 mls/hr IVPB Q8HR [facility] Rx# :[id number] Oral 900 240 360 Output: Urine 2150 1025 - Exam General: The patient is awake and alert, in no distress Eye: there is normal conjunctiva bilaterally. Neck: The neck is supple, there is no JVD. Cardiovascular: Normal S1-S2, no S3-S4, no murmurs. Respiratory: Lungs clear to auscultation bilaterally Gastrointestinal: Abdomen is soft, nontender Musculoskeletal: There is +3 pitting edema up to the knee. Both legs wrapped with clean dressing/Kayode wrap Neurological:. Speech is normal. Skin: Skin is warm and dry - Labs CBC & Chem 7: 05/07/20 06:34 05/07/20 06:34 Labs: Abnormal Lab Results - Last 24 Hours (Table) 05/07/20 05/07/20 Range/Units 06:34 06:34 RBC 4.29 L (4.30-5.90) m/uL MCV 111.3 H (80.0-100.0) fL MCH 35.5 H (25.0-35.0) pg Lymphocytes # 0.9 L (1.0-4.8) k/uL Macrocytosis Marked A BUN 31 H (9-20) mg/dL Glucose 109 H (74-99) mg/dL Assessment and Plan Assessment: 1. Acute diastolic heart failure exacerbation, started on IV Lasix 40 mg every 8 hours. Strict I's and O's. Daily weights. Echocardiogram showed preserved EF of 55%. 2. Atrial fibrillation with rapid ventricular response, on anticoagulation with Rivaroxaban. Patient was started on IV Cardizem drip on presentation now discontinue and home dose of metoprolol. Thyroid function test normal. Cardiology consulted and following, appreciate recommendations. 3. Sepsis without septic shock: Mild. We'll continue antibiotics. Blood culture not sent unfortunately on presentation Lactic acid normal. 4. Bilateral lower extremity cellulitis probably exacerbated by edema, we will continue IV cefazolin. Local wound care. Infectious disease consulted. 5. Bilateral lower extremity swelling, secondary to underlying diastolic heart failure and chronic venous insufficiency. Ultrasound showed no evidence of DVT 6. Hypomagnesemia, magnesium replacement order 7. Chronic medical problems include history of aortic valve replacement, essential hypertension, morbid obesity Repeat lab work in the morning Physician to oral Lasix tomorrow and possibly discharge home
[2020-05-07] MEDS: ASPIRIN 325 MG TAB PO SCH (10:37)
[2020-05-07] MEDS: FUROSEMIDE 100 MG in SODIUM CHLORIDE 0.9% 90 ML IV SCH ×2 (10:41→21:10)
--- NOTE | 2020-05-07 12:21 | PN ---
PROGRESS NOTE Salty is a 49-year-old gentleman who is admitted to hospital with acute exacerbation of chronic congestive heart failure. He has made some improvement but still has bilateral leg edema. His blood pressure is well controlled. Remains in atrial fibrillation with controlled ventricular rate and he is on Xarelto for the same. On exam, patient is afebrile. Heart rate is 87 beats per minute. Blood pressure is 116/71, respiratory rate is 18, O2 saturation is 95% on room air. There is no jugular venous distention. Chest exam reveals good air entry bilaterally. Heart exam reveals first and second heart sounds, irregular rhythm and an ejection systolic murmur in the aortic area. Abdomen is soft. Exam of the extremities reveals bilateral moderate pitting edema lab show potassium of 4.5, creatinine is 0.9. Tropes are negative. Coronavirus is negative. Creatinine is normal. ASSESSMENT: 1. Acute exacerbation of chronic congestive heart failure, which seems diastolic. 2. History of aortic valve replacement. 3. Bilateral lower extremity cellulitis. PLAN: I am going to switch the patient to Lasix drip as he continues to have leg edema and hopefully we can discharge him home over the next 48 hours. MMODL / IJN: [id number] /
--- NOTE | 2020-05-07 13:03 | PN ---
PROGRESS NOTE DATE OF SERVICE: 05/07/2020 REASON FOR FOLLOWUP: Bilateral lower extremity wound and cellulitis noted. The patient is currently afebrile. He is complaining of shortness of breath and lower extremity swelling. No chest pain or cough. No abdominal pain. No diarrhea. No worsening pain to the legs. PHYSICAL EXAMINATION: Blood pressure 117/76, pulse of 90, temperature is 99% on room air. General description is a middle-aged male up in the chair in no distress. RESPIRATORY SYSTEM: Unlabored breathing, clear to auscultation anteriorly. HEART: S1, S2. Regular rate and rhythm. ABDOMEN: Soft, no tenderness. LEGS: Currently wrapped up, minimal drainage on the dressing. The redness decreased. LABS: Hemoglobin is 15, white count of 8.5. BUN of 31, creatinine 0.95. DIAGNOSTIC IMPRESSION AND PLAN: Patient with bilateral lower extremity venostasis ulcer with secondary cellulitis covered with cefazolin. Local care with Aquacel Silver dressing and Kayode wrap and will monitor clinical course closely. MMODL / IJN: [id number] /
[2020-05-07] MEDS: RIVAROXABAN 20 MG TAB PO SCH (18:09)
[2020-05-07] MEDS: HYDROcodone/APAP 7.5-325MG 1 EACH TAB PO PRN (20:32)
[2020-05-08] MEDS: FUROSEMIDE 100 MG in SODIUM CHLORIDE 0.9% 90 ML IV SCH ×2 (02:07→20:49)
[2020-05-08] MEDS: HYDROcodone/APAP 7.5-325MG 1 EACH TAB PO PRN ×2 (05:04→16:38)
[2020-05-08 05:54] LABS: Basophils # (A) 0.1 k/uL (0-0.2); Basophils % (A) 1 %; Eosinophils # (A) 0.2 k/uL (0-0.7); Eosinophils % (A) 2 %; HCT 47.2 % (39.0-53.0); HGB 15.2 gm/dL (13.0-17.5); Hypochromasia Slight; Lymphocytes % (A) 10 %; MCH 35.8 pg (25.0-35.0); MCHC 32.1 g/dL (31.0-37.0); MCV 111.4 fL (80.0-100.0); Macrocytosis Marked; Mean Platelet Volume 7.2; Monocytes # (A) 0.7 k/uL (0-1.0); Monocytes % (A) 7 %; Neutrophils # (A) 7.6 k/uL (1.3-7.7); Neutrophils % (A) 79 %; Platelet Count 197 k/uL (150-450); RBC 4.24 m/uL (4.30-5.90); RDW 14.9 % (11.5-15.5); WBC 9.6 k/uL (3.8-10.6)
[2020-05-08 06:05] LABS: African American GFR (CKD) >90 (>60 ml/min/1.73 sqM); Anion Gap 9 mmol/L; Blood Urea Nitrogen 35 mg/dL (9-20); Calcium 8.5 mg/dL (8.4-10.2); Carbon Dioxide 26 mmol/L (22-30); Chloride 102 mmol/L (98-107); Glucose 88 mg/dL (74-99); Non-African American GFR(CKD) >90 (>60 ml/min/1.73 sqM); Potassium 4.9 mmol/L (3.5-5.1); Sodium 137 mmol/L (137-145)
[2020-05-08] MEDS: LOSARTAN 25 MG TAB PO SCH (09:08)
[2020-05-08] MEDS: METOPROLOL TARTRATE 50 MG TAB PO SCH ×2 (09:08→16:33)
[2020-05-08] MEDS: ASPIRIN 325 MG TAB PO SCH (09:08)
[2020-05-08] MEDS: GABAPENTIN 100 MG CAP PO SCH ×2 (09:08→16:33)
[2020-05-08] MEDS: ACETAMINOPHEN TAB 325 MG TAB PO PRN (09:14)
--- NOTE | 2020-05-08 09:50 | P.PN ---
Subjective Progress Note Date: 05/08/20 This is a pleasant 49-year-old gentleman who was admitted to the hospital with acute exacerbation of chronic diastolic congestive heart failure. He was initiated on IV Lasix drip yesterday going at 10 mg an hour. He remains in atrial fibrillation with mostly controlled ventricular rate with rapid rate af ter exertion. He continues to be anticoagulated. He feels his edema is becoming somewhat better. Continues to be short of breath activity. Labs today show a stable renal function with a BUN at 35 and creatinine 0.91, potassium 4.9. His weight is down 1 kg since yesterday. Objective - Vital Signs Vital signs: Vital Signs Temp 97.5 F L 05/08/20 04:00 Pulse 92 05/08/20 04:00 Resp 18 05/08/20 04:00 BP 135/87 05/08/20 04:00 Pulse Ox 98 05/08/20 04:00 Intake & Output 05/07/20 05/08/20 05/08/20 18:59 06:59 18:59 Intake Total 600 149.5 Output Total 800 1675 Balance -200 -1525.5 Weight 176.4 kg Intake: Intake, IV Titration 149.5 Amount Furosemide 100 mg In 149.5 Sodium Chloride 0.9% 90 ml @ 10 MG/HR 10 mls/hr IV .Q10H [facility] Rx#: [id number] Oral 600 Output: Urine 800 1675 Other: Voiding Method Urinal - Exam PHYSICAL EXAMINATION: HEENT: Head is atraumatic, normocephalic. Pupils equal, round. Neck is supple. There is no elevated jugular venous pressure. HEART EXAMINATION: Heart sounds irregularly irregular, S1 and S2 with a systolic ejection murmur. CHEST EXAMINATION: Lungs are clear to auscultation. No chest wall tenderness is noted on palpation or with deep breathing. ABDOMEN: Soft, obese nontender. Bowel sounds are heard. No organomegaly noted. EXTREMITIES: 1+ peripheral pulses with evidence of moderate peripheral edema. Kayode wraps to bilateral lower extremities. NEUROLOGIC patient is awake, alert and oriented x3. . - Labs CBC & Chem 7: 05/08/20 05:17 05/08/20 05:17 Labs: Abnormal Lab Results - Last 24 Hours (Table) 05/08/20 05/08/20 Range/Units 05:17 05:17 RBC 4.24 L (4.30-5.90) m/uL MCV 111.4 H (80.0-100.0) fL MCH 35.8 H (25.0-35.0) pg Macrocytosis Marked A BUN 35 H (9-20) mg/dL Assessment and Plan Assessment: #1 acute exacerbation of chronic diastolic congestive heart failure #2 prior aortic valve replacement #3 bilateral lower extremity cellulitis and followed by infectious disease Number for permanent atrial fibrillation, heart rates not well-controlled at this time. Plan: From gold cutter perspective we will continue Lasix drip for another 24 hours. We will increase the dose of his beta paulina. Continue to monitor daily weights, renal function, electrolytes as well as intake and output. Further recommendations to follow. The above dictated assessment and findings were discussed with signing physician. The impression and plan of care have been directed as dictated. Tasha Seymour, Nurse Practitioner, acting as scribe for signing physician.
--- NOTE | 2020-05-08 13:13 | P.PN ---
Subjective Progress Note Date: 05/08/20 Patient is awake and alert. He does not have any complaints this morning. No acute events overnight reported by nursing staff. Objective - Vital Signs Vital signs: Vital Signs Temp 98.2 F 05/08/20 12:00 Pulse 90 05/08/20 12:00 Resp 19 05/08/20 12:00 BP 115/73 05/08/20 12:00 Pulse Ox 96 05/08/20 12:00 Intake & Output 05/07/20 05/08/20 05/08/20 18:59 06:59 18:59 Intake Total 600 149.5 Output Total 800 1675 600 Balance -200 -1525.5 -600 Weight 176.4 kg Intake: Intake, IV Titration 149.5 Amount Furosemide 100 mg In 149.5 Sodium Chloride 0.9% 90 ml @ 10 MG/HR 10 mls/hr IV .Q10H [facility] Rx#: [id number] Oral 600 Output: Urine 800 1675 600 Other: Voiding Method Urinal Urinal - Exam General: The patient is awake and alert, in no distress Eye: there is normal conjunctiva bilaterally. Neck: The neck is supple, there is no JVD. Cardiovascular: Normal S1-S2, no S3-S4, no murmurs. Respiratory: Lungs clear to auscultation bilaterally Gastrointestinal: Abdomen is soft, nontender Musculoskeletal: There is +2 pitting edema up to the knee. Both legs wrapped with clean dressing/Kayode wrap Neurological:. Speech is normal. Skin: Skin is warm and dry - Labs CBC & Chem 7: 05/08/20 05:17 05/08/20 05:17 Labs: Abnormal Lab Results - Last 24 Hours (Table) 05/08/20 05/08/20 Range/Units 05:17 05:17 RBC 4.24 L (4.30-5.90) m/uL MCV 111.4 H (80.0-100.0) fL MCH 35.8 H (25.0-35.0) pg Macrocytosis Marked A BUN 35 H (9-20) mg/dL Assessment and Plan Assessment: 1. Acute diastolic heart failure exacerbation, started on IV Lasix 40 mg every 8 hours with minimal improvement currently on IV Lasix drip. Strict I's and O's. Daily weights. Echocardiogram showed preserved EF of 55%. 2. Atrial fibrillation with rapid ventricular response, on anticoagulation with Rivaroxaban. Patient was started on IV Cardizem drip on presentation now discontinue and home dose of metoprolol. Thyroid function test normal. Cardiology consulted and following, appreciate recommendations. 3. Sepsis without septic shock: Mild. We'll continue antibiotics. Blood culture not sent unfortunately on presentation Lactic acid normal. 4. Bilateral lower extremity cellulitis probably exacerbated by edema, we will continue IV cefazolin. Local wound care. Infectious disease consulted. 5. Bilateral lower extremity swelling, secondary to underlying diastolic heart failure and chronic venous insufficiency. Ultrasound showed no evidence of DVT 6. Hypomagnesemia, magnesium replacement order 7. Chronic medical problems include history of aortic valve replacement, essential hypertension, morbid obesity Repeat lab work in the morning
[2020-05-08] MEDS: RIVAROXABAN 20 MG TAB PO SCH (16:34)
--- NOTE | 2020-05-08 17:08 | PN ---
PROGRESS NOTE DATE OF SERVICE: 05/08/2020 REASON FOR FOLLOWUP: Bilateral lower extremity cellulitis. INTERVAL HISTORY: Patient is currently afebrile. Patient is breathing comfortably. The patient denies having any chest pain. Did have some cough but no sputum. No abdominal pain. Still complaining of some discomfort to the bilateral leg area but the drainage has decreased. PHYSICAL EXAMINATION: Blood pressure 115/73 with a pulse of 90, temperature 98.2. He is 96% on room air. General description is a middle-aged male up in the chair in no distress. Respiratory system: Unlabored breathing, clear to auscultation anteriorly. Heart S1, S2. Regular rate and rhythm. The legs are currently wrapped up. No obvious drainage on the dressing. LABS: Hemoglobin 16.1, 9.6, BUN of 35, creatinine 0.91. DIAGNOSTIC IMPRESSION AND PLAN: Patient with bilateral lower extremity cellulitis in this patient who did have evidence of fluid overload. Covered with Cipro and local care with dry Aquacel dressing and Kayode wrap and monitor his clinical course closely. Finish therapy with oral Keflex. MMODL / IJN: [id number] /
[2020-05-09] MEDS: GABAPENTIN 100 MG CAP PO SCH ×3 (00:12→17:31)
[2020-05-09] MEDS: HYDROcodone/APAP 7.5-325MG 1 EACH TAB PO PRN ×3 (00:12→17:34)
[2020-05-09] MEDS: METOPROLOL TARTRATE 50 MG TAB PO SCH ×3 (00:13→17:31)
[2020-05-09] MEDS: ASPIRIN 325 MG TAB PO SCH (08:32)
[2020-05-09] MEDS: LOSARTAN 25 MG TAB PO SCH (08:34)
[2020-05-09 08:37] LABS: Basophils # (A) 0.1 k/uL (0-0.2); Basophils % (A) 1 %; Eosinophils # (A) 0.2 k/uL (0-0.7); Eosinophils % (A) 2 %; HCT 46.4 % (39.0-53.0); HGB 14.9 gm/dL (13.0-17.5); Lymphocytes # (A) 0.9 k/uL (1.0-4.8); Lymphocytes % (A) 10 %; MCH 35.3 pg (25.0-35.0); MCHC 32.2 g/dL (31.0-37.0); MCV 109.5 fL (80.0-100.0); Macrocytosis Marked; Mean Platelet Volume 7.3; Monocytes # (A) 0.7 k/uL (0-1.0); Monocytes % (A) 7 %; Neutrophils # (A) 7.2 k/uL (1.3-7.7); Neutrophils % (A) 79 %; Platelet Count 222 k/uL (150-450); RBC 4.24 m/uL (4.30-5.90); RDW 14.6 % (11.5-15.5); WBC 9.2 k/uL (3.8-10.6)
[2020-05-09 08:47] LABS: African American GFR (CKD) >90 (>60 ml/min/1.73 sqM); Anion Gap 9 mmol/L; Blood Urea Nitrogen 32 mg/dL (9-20); Calcium 8.5 mg/dL (8.4-10.2); Carbon Dioxide 31 mmol/L (22-30); Chloride 98 mmol/L (98-107); Glucose 95 mg/dL (74-99); Magnesium 1.9 mg/dL (1.6-2.3); Non-African American GFR(CKD) >90 (>60 ml/min/1.73 sqM); Potassium 4.3 mmol/L (3.5-5.1); Sodium 138 mmol/L (137-145)
[2020-05-09] MEDS: FUROSEMIDE 100 MG in SODIUM CHLORIDE 0.9% 90 ML IV SCH ×2 (09:41→14:07)
--- NOTE | 2020-05-09 09:58 | P.PN ---
Subjective Progress Note Date: 05/09/20 Patient is awake and alert. He does not have any complaints this morning. No acute events overnight reported by nursing staff. Objective - Vital Signs Vital signs: Vital Signs Temp 98.1 F 05/09/20 08:00 Pulse 85 05/09/20 08:00 Resp 18 05/09/20 08:00 BP 113/76 05/09/20 08:00 Pulse Ox 93 L 05/09/20 08:00 Intake & Output 05/08/20 05/09/20 05/09/20 18:59 06:59 18:59 Intake Total 570 100 Output Total 2500 3050 500 Balance -1930 -6000 -500 Weight 177 kg Intake: Intake, IV Titration 100 100 Amount Furosemide 100 mg In 100 100 Sodium Chloride 0.9% 90 ml @ 10 MG/HR 10 mls/hr IV .Q10H [facility] Rx#: [id number] Oral 470 Output: Urine 2500 3050 500 Other: Voiding Method Urinal Urinal Urinal # Voids 2 1 - Exam General: The patient is awake and alert, in no distress Eye: there is normal conjunctiva bilaterally. Neck: The neck is supple, there is no JVD. Cardiovascular: Normal S1-S2, no S3-S4, no murmurs. Respiratory: Lungs clear to auscultation bilaterally Gastrointestinal: Abdomen is soft, nontender Musculoskeletal: There is +2 pitting edema up to the knee. Both legs wrapped with clean dressing/Kayode wrap Neurological:. Speech is normal. Skin: Skin is warm and dry - Labs CBC & Chem 7: 05/09/20 07:15 05/09/20 07:15 Labs: Abnormal Lab Results - Last 24 Hours (Table) 05/09/20 05/09/20 Range/Units 07:15 07:15 RBC 4.24 L (4.30-5.90) m/uL MCV 109.5 H (80.0-100.0) fL MCH 35.3 H (25.0-35.0) pg Lymphocytes # 0.9 L (1.0-4.8) k/uL Macrocytosis Marked A Carbon Dioxide 31 H (22-30) mmol/L BUN 32 H (9-20) mg/dL Assessment and Plan Assessment: 1. Acute diastolic heart failure exacerbation, started on IV Lasix 40 mg every 8 hours with minimal improvement currently on IV Lasix drip. Strict I's and O's. Daily weights. Echocardiogram showed preserved EF of 55%. 2. Atrial fibrillation with rapid ventricular response, on anticoagulation with Rivaroxaban. Patient was started on IV Cardizem drip on presentation now discontinue and home dose of metoprolol. Thyroid function test normal. Cardiology consulted and following, appreciate recommendations. 3. Sepsis without septic shock: Mild. We'll continue antibiotics. Blood culture not sent unfortunately on presentation Lactic acid normal. 4. Bilateral lower extremity cellulitis probably exacerbated by edema, we will continue IV cefazolin. Local wound care. Infectious disease consulted. 5. Bilateral lower extremity swelling, secondary to underlying diastolic heart failure and chronic venous insufficiency. Ultrasound showed no evidence of DVT 6. Hypomagnesemia, replaced 7. Chronic medical problems include history of aortic valve replacement, essential hypertension, morbid obesity Repeat lab work in the morning Continue diuresis with IV Lasix drip
--- NOTE | 2020-05-09 14:24 | PN ---
PROGRESS NOTE Salty is a 49-year-old gentleman who is admitted to the hospital with acute exacerbation of chronic congestive heart failure, has history of aortic valve replacement and atrial fibrillation. He also had bilateral lower extremity cellulitis. I started him on Lasix drip with significant improvement in symptoms. He is putting out urine well and has lost quite a bit of weight. EXAM: Heart rate is 85 beats per minute. Blood pressure is 113/76, respirations 18. There is no jugular venous distention. Chest exam reveals good air entry bilaterally. Heart exam reveals first and second heart sounds. No gallop. Exam of the extremities reveals that the leg edema has improved, as did the cellulitis. He is being followed by the infectious disease doctor. ASSESSMENT: Acute exacerbation of chronic congestive heart failure. This is diastolic. I will continue the Lasix drip for another day. Tomorrow we should be able to convert him to p.o. Lasix and hopefully discharge him home. MMODL / IJN: [id number] /
[2020-05-09] MEDS: RIVAROXABAN 20 MG TAB PO SCH (17:31)
--- NOTE | 2020-05-09 23:51 | PN ---
PROGRESS NOTE DATE OF SERVICE: 05/09/2020 REASON FOR FOLLOWUP: Bilateral lower extremity cellulitis. INTERVAL HISTORY: The patient is currently afebrile. The patient is breathing more comfortably today. The patient denies having any chest pain or shortness of breath. Occasional cough. No abdominal pain. Overall pain and discomfort of the legs has decreased. PHYSICAL EXAMINATION: Blood pressure 125/78 with a pulse of 89, temperature 98.7. He is 97% on room air. General description is a middle-aged male lying in bed in no distress. RESPIRATORY SYSTEM: Unlabored breathing, clear to auscultation anteriorly. HEART: S1, S2. Regular rate and rhythm. ABDOMEN: Soft, no tenderness. Legs are currently wrapped up. No obvious drainage on the dressing. LABS: Hemoglobin is 14.9, white count 9.2, BUN of 32, creatinine 0.84. DIAGNOSTIC IMPRESSION AND PLAN: Patient with bilateral lower extremity cellulitis who was admitted to the hospital with congestive heart failure and fluid overload. The patient is covered with cefazolin. To finish therapy with oral Keflex and will monitor clinical course closely. MMODL / IJN: [id number] /
[2020-05-10] MEDS: METOPROLOL TARTRATE 50 MG TAB PO SCH ×4 (00:02→21:02)
[2020-05-10] MEDS: GABAPENTIN 100 MG CAP PO SCH ×4 (00:02→21:02)
[2020-05-10] MEDS: HYDROcodone/APAP 7.5-325MG 1 EACH TAB PO PRN ×3 (00:21→15:02)
[2020-05-10] MEDS: FUROSEMIDE 100 MG in SODIUM CHLORIDE 0.9% 90 ML IV SCH ×4 (07:06→21:02)
[2020-05-10] MEDS: LOSARTAN 25 MG TAB PO SCH (08:05)
[2020-05-10] MEDS: ASPIRIN 325 MG TAB PO SCH (08:06)
[2020-05-10 08:46] LABS: African American GFR (CKD) >90 (>60 ml/min/1.73 sqM); Anion Gap 9 mmol/L; Blood Urea Nitrogen 29 mg/dL (9-20); Calcium 8.7 mg/dL (8.4-10.2); Carbon Dioxide 32 mmol/L (22-30); Chloride 97 mmol/L (98-107); Glucose 154 mg/dL (74-99); Non-African American GFR(CKD) >90 (>60 ml/min/1.73 sqM); Potassium 4.1 mmol/L (3.5-5.1); Sodium 138 mmol/L (137-145)
--- NOTE | 2020-05-10 09:09 | P.PN ---
Subjective Progress Note Date: 05/10/20 Principal diagnosis: Heart failure was preserved LV function This is a 49-year-old gentleman with coronary artery disease and status post CABG was performed out of this area as well as valvular heart disease as well as morbid obesity who was admitted to the hospital with heart failure. He was diagnosed was congestive heart failure secondary to diastolic dysfunction and he was started on Lasix drip. The echo revealed normal LV function was moderate LVH. He was seen today. Overall and from the cardiovascular standpoint of view, he still fluid overloaded. He is putting significant urine output. The creatinine continues to be stable. Electrolytes are stable. I would continue the patient on Lasix therapy for additional 24 hours and reevaluate tomorrow morning and con tinue monitor the kidney function as well as electrolytes. Objective - Vital Signs Vital signs: Vital Signs Temp 98.1 F 05/09/20 20:00 Pulse 91 05/10/20 04:00 Resp 18 05/10/20 04:00 BP 112/70 05/10/20 04:00 Pulse Ox 96 05/10/20 04:00 Intake & Output 05/09/20 05/10/20 05/10/20 18:59 06:59 18:59 Intake Total 100 480 Output Total 1600 1550 Balance -1600 -1450 480 Weight 173.4 kg Intake: Intake, IV Titration 100 Amount Furosemide 100 mg In 100 Sodium Chloride 0.9% 90 ml @ 10 MG/HR 10 mls/hr IV .Q10H [facility] Rx#: [id number] Oral 480 Output: Urine 1600 1550 Other: Voiding Method Urinal Urinal # Voids 1 - Constitutional General appearance: Present: no acute distress - Respiratory Respiratory: bilateral: diminished - Cardiovascular Rhythm: regular Abnormal Heart Sounds: Present: systolic murmur - Labs CBC & Chem 7: 05/09/20 07:15 05/10/20 07:49 Labs: Abnormal Lab Results - Last 24 Hours (Table) 05/10/20 Range/Units 07:49 Chloride 97 L (98-107) mmol/L Carbon Dioxide 32 H (22-30) mmol/L BUN 29 H (9-20) mg/dL Glucose 154 H (74-99) mg/dL Assessment and Plan Assessment: Assessment #1 acute exacerbation of congestive heart failure secondary to diastole dysfunction #2 morbid obesity #3 coronary artery disease #4 valvular heart disease Plan #1 continue the current dose of Lasix #2 continue monitor the kidney function and electrolytes #3 follow-up with the patient
--- NOTE | 2020-05-10 09:17 | P.PN ---
Subjective Progress Note Date: 05/10/20 Patient is awake and alert. He does not have any complaints this morning. No acute events overnight reported by nursing staff. Objective - Vital Signs Vital signs: Vital Signs Temp 98.1 F 05/09/20 20:00 Pulse 91 05/10/20 04:00 Resp 18 05/10/20 04:00 BP 112/70 05/10/20 04:00 Pulse Ox 96 05/10/20 04:00 Intake & Output 05/09/20 05/10/20 05/10/20 18:59 06:59 18:59 Intake Total 100 480 Output Total 1600 1550 Balance -1600 -1450 480 Weight 173.4 kg Intake: Intake, IV Titration 100 Amount Furosemide 100 mg In 100 Sodium Chloride 0.9% 90 ml @ 10 MG/HR 10 mls/hr IV .Q10H [facility] Rx#: [id number] Oral 480 Output: Urine 1600 1550 Other: Voiding Method Urinal Urinal # Voids 1 - Exam General: The patient is awake and alert, in no distress Eye: there is normal conjunctiva bilaterally. Neck: The neck is supple, there is no JVD. Cardiovascular: Normal S1-S2, no S3-S4, no murmurs. Respiratory: Lungs clear to auscultation bilaterally Gastrointestinal: Abdomen is soft, nontender Musculoskeletal: There is +2 pitting edema up to the knee. Both legs wrapped with clean dressing/Kayode wrap Neurological:. Speech is normal. Skin: Skin is warm and dry - Labs CBC & Chem 7: 05/09/20 07:15 05/10/20 07:49 Labs: Abnormal Lab Results - Last 24 Hours (Table) 05/10/20 Range/Units 07:49 Chloride 97 L (98-107) mmol/L Carbon Dioxide 32 H (22-30) mmol/L BUN 29 H (9-20) mg/dL Glucose 154 H (74-99) mg/dL Assessment and Plan Assessment: 1. Acute diastolic heart failure exacerbation, started on IV Lasix 40 mg every 8 hours with minimal improvement currently on IV Lasix drip. Strict I's and O's. Daily weights. Echocardiogram showed preserved EF of 55%. 2. Atrial fibrillation with rapid ventricular response, on anticoagulation with Rivaroxaban. Patient was started on IV Cardizem drip on presentation now discontinue and home dose of metoprolol. Thyroid function test normal. Cardiology consulted and following, appreciate recommendations. 3. Sepsis without septic shock: Mild. We'll continue antibiotics. Blood culture not sent unfortunately on presentation Lactic acid normal. 4. Bilateral lower extremity cellulitis with open ulcer on the left lower extremity probably exacerbated by edema, we will continue IV cefazolin. Local wound care. Infectious disease consulted. 5. Bilateral lower extremity swelling, secondary to underlying diastolic heart failure and chronic venous insufficiency. Ultrasound showed no evidence of DVT 6. Hypomagnesemia, replaced 7. Chronic medical problems include history of aortic valve replacement, essential hypertension, morbid obesity Repeat lab work in the morning Continue diuresis with IV Lasix drip Anticipate discharge home tomorrow
[2020-05-10] MEDS: RIVAROXABAN 20 MG TAB PO SCH (17:44)
--- NOTE | 2020-05-10 19:02 | PN ---
PROGRESS NOTE DATE OF SERVICE: 05/10/2020 REASON FOR FOLLOWUP: Bilateral lower extremity cellulitis. INTERVAL HISTORY: The patient is currently afebrile. The patient is breathing comfortably. Denies having any chest pain or shortness of breath or cough. Overall pain and discomfort to the legs has improved. PHYSICAL EXAMINATION: Blood pressure 120/76 with pulse of 80, temperature 98.1. He is 96% on room air. General description is a middle-aged male up in the chair in no distress. RESPIRATORY SYSTEM: Unlabored breathing. Clear to auscultation anteriorly. HEART: S1, S2. Regular rate and rhythm. ABDOMEN: Soft. No tenderness. Legs are currently wrapped up. No obvious drainage on the dressing. LABS: BUN of 29, creatinine 0.80. DIAGNOSTIC IMPRESSION AND PLAN: Patient with bilateral lower extremity cellulitis in this patient who had diffuse swelling and redness, likely streptococcal disease. Plan is for oral Keflex 500 mg p.o. q.i.d. for another 10 days. Local care with dry Aquacel Silver dressing and Kayode wrap and close outpatient followup. MMODL / IJN: [id number] /
[2020-05-11] MEDS: HYDROcodone/APAP 7.5-325MG 1 EACH TAB PO PRN ×4 (00:01→20:25)
[2020-05-11 06:20] LABS: African American GFR (CKD) >90 (>60 ml/min/1.73 sqM); Anion Gap 8 mmol/L; Blood Urea Nitrogen 30 mg/dL (9-20); Carbon Dioxide 35 mmol/L (22-30); Chloride 95 mmol/L (98-107); Glucose 95 mg/dL (74-99); Magnesium 1.9 mg/dL (1.6-2.3); Non-African American GFR(CKD) >90 (>60 ml/min/1.73 sqM); Potassium 4.4 mmol/L (3.5-5.1); Sodium 138 mmol/L (137-145)
[2020-05-11] MEDS: FUROSEMIDE 100 MG in SODIUM CHLORIDE 0.9% 90 ML IV SCH (06:20)
[2020-05-11 08:13] LABS: HCT 46.5 % (39.0-53.0); MCH 35.3 pg (25.0-35.0); MCHC 32.2 g/dL (31.0-37.0); MCV 109.5 fL (80.0-100.0); Macrocytosis Marked; Mean Platelet Volume 7.4; Platelet Count 244 k/uL (150-450); RBC 4.25 m/uL (4.30-5.90); RDW 14.4 % (11.5-15.5); WBC 8.5 k/uL (3.8-10.6)
--- NOTE | 2020-05-11 08:34 | P.PN ---
Subjective Progress Note Date: 05/11/20 Principal diagnosis: Heart failure was preserved LV function This is a 49-year-old gentleman with coronary artery disease and status post CABG was performed out of this area as well as valvular heart disease as well as morbid obesity who was admitted to the hospital with heart failure. He was diagnosed was congestive heart failure secondary to diastolic dysfunction and he was started on Lasix drip. The echo revealed normal LV function was moderate LVH. The patient was seen today, 05/11/2020. He is experiencing chest tightness this morning. He continues to be fluid overloaded with severe bilateral lower 70s edema. His heart failure is predominantly right heart failure more than left heart failure. His chest examination actually showed clear breathing sounds bilaterally. He lost about 3 kg since he was admitted to the hospital. I will continue the Lasix drip at this point and continue monitor the kidney function and creatinine and its creatinine this morning continues to be stable. Also I am going to obtain an EKG and cardiac enzymes. Objective - Vital Signs Vital signs: Vital Signs Temp 98.0 F 05/11/20 08:00 Pulse 96 05/11/20 08:00 Resp 18 05/11/20 08:00 BP 127/65 05/11/20 08:00 Pulse Ox 97 05/11/20 08:00 Intake & Output 05/10/20 05/11/20 05/11/20 18:59 06:59 18:59 Intake Total 820 Output Total 3300 600 Balance -2480 -600 Weight 170.6 kg Intake: Intake, IV Titration 100 Amount Furosemide 100 mg In 100 Sodium Chloride 0.9% 90 ml @ 10 MG/HR 10 mls/hr IV .Q10H [facility] Rx#: [id number] Oral 720 Output: Urine 3300 600 Other: Voiding Method Urinal Urinal # Voids 2 - Constitutional General appearance: Present: no acute distress - Respiratory Respiratory: bilateral: CTA - Cardiovascular Rhythm: irregularly irregular Heart sounds: normal: S1, S2 Abnormal Heart Sounds: Present: systolic murmur - Labs CBC & Chem 7: 05/11/20 05:26 05/11/20 05:26 Labs: Abnormal Lab Results - Last 24 Hours (Table) 05/10/20 05/11/20 05/11/20 Range/Units 07:49 05:26 05:26 RBC 4.25 L (4.30-5.90) m/uL MCV 109.5 H (80.0-100.0) fL MCH 35.3 H (25.0-35.0) pg Macrocytosis Marked A Chloride 97 L 95 L (98-107) mmol/L Carbon Dioxide 32 H 35 H (22-30) mmol/L BUN 29 H 30 H (9-20) mg/dL Glucose 154 H (74-99) mg/dL Assessment and Plan Assessment: Assessment #1 acute exacerbation of congestive heart failure secondary to diastole dysfunction #2 long-standing persistent atrial fibrillation on oral anticoagulation #3 coronary artery disease #4 valvular heart disease Plan #1 continue the current dose of Lasix #2 continue monitor the kidney function and electrolytes #3 obtain 12 leads EKG #4 obtaining cardiac enzymes #5 follow-up with the patient
[2020-05-11] MEDS: ASPIRIN 325 MG TAB PO SCH (09:20)
[2020-05-11] MEDS: LOSARTAN 25 MG TAB PO SCH (09:21)
[2020-05-11] MEDS: GABAPENTIN 100 MG CAP PO SCH ×3 (09:21→20:26)
[2020-05-11] MEDS: METOPROLOL TARTRATE 50 MG TAB PO SCH ×2 (09:21→20:26)
[2020-05-11] MEDS ORDERED: METOPROLOL TARTRATE 50 MG TAB PO STA (09:30)
--- NOTE | 2020-05-11 13:10 | PN ---
PROGRESS NOTE DATE OF SERVICE: 05/11/2020 REASON FOR FOLLOWUP: Bilateral lower extremity cellulitis. INTERVAL HISTORY: Patient is currently afebrile, has been breathing comfortably. Denies having any chest pain. Some shortness of breath. Minimal cough. No abdominal pain or pain to the lower extremity. PHYSICAL EXAMINATION: Blood pressure 100/65, pulse 93, temperature 98, he is 97% room air. General description is a middle-aged male, lying in bed in no distress. RESPIRATORY SYSTEM: Unlabored breathing, clear to auscultation anteriorly. HEART: S1, S2. Regular rate and rhythm. ABDOMEN: Soft, nontender. His legs are currently wrapped up, no obvious drainage on the dressing. LABS: White count 8.5, creatinine 0.90. DIAGNOSTIC IMPRESSION AND PLAN: Patient with bilateral lower extremity cellulitis. The patient did have diffuse swelling and redness likely streptococcal disease. Plan is to finish therapy with oral Keflex 500 mg t.i.d. for about a week. Local care with dry Aquacel dressing and Kayode wrap. Continue supportive care. MMODL / IJN: [id number] /
--- NOTE | 2020-05-11 14:21 | P.PN ---
Subjective Progress Note Date: 05/11/20 Patient is awake and alert. He does not have any complaints this morning. He is still in A. fib with a heart rate in the 80s to 90s at rest but going up to 140s to 160 with ambulation. Patient reports feeling slightly dizzy. Objective - Vital Signs Vital signs: Vital Signs Temp 98.1 F 05/11/20 12:00 Pulse 97 05/11/20 12:00 Resp 18 05/11/20 12:00 BP 120/74 05/11/20 12:00 Pulse Ox 97 05/11/20 12:00 Intake & Output 05/10/20 05/11/20 05/11/20 18:59 06:59 18:59 Intake Total 820 240 Output Total 3300 600 Balance -2480 -600 240 Weight 170.6 kg Intake: Intake, IV Titration 100 Amount Furosemide 100 mg In 100 Sodium Chloride 0.9% 90 ml @ 10 MG/HR 10 mls/hr IV .Q10H [facility] Rx#: [id number] Oral 720 240 Output: Urine 3300 600 Other: Voiding Method Urinal Urinal Urinal # Voids 2 - Exam General: The patient is awake and alert, in no distress Eye: there is normal conjunctiva bilaterally. Neck: The neck is supple, there is no JVD. Cardiovascular: Normal S1-S2, no S3-S4, no murmurs. Respiratory: Lungs clear to auscultation bilaterally Gastrointestinal: Abdomen is soft, nontender Musculoskeletal: There is +2 pitting edema up to the knee. Both legs wrapped with clean dressing/Kayode wrap Neurological:. Speech is normal. Skin: Skin is warm and dry - Labs CBC & Chem 7: 05/11/20 05:26 05/11/20 05:26 Labs: Abnormal Lab Results - Last 24 Hours (Table) 05/11/20 05/11/20 Range/Units 05:26 05:26 RBC 4.25 L (4.30-5.90) m/uL MCV 109.5 H (80.0-100.0) fL MCH 35.3 H (25.0-35.0) pg Macrocytosis Marked A Chloride 95 L (98-107) mmol/L Carbon Dioxide 35 H (22-30) mmol/L BUN 30 H (9-20) mg/dL Assessment and Plan Assessment: 1. Acute diastolic heart failure exacerbation, started on IV Lasix 40 mg every 8 hours with minimal improvement and switched to IV Lasix drip at 10 mg per hour and today was transitioned back to oral Lasix 40 mg twice daily.. Strict I's and O's. Daily weights. Echocardiogram showed preserved EF of 55%. 2. Atrial fibrillation with rapid ventricular response, on anticoagulation with Rivaroxaban. Patient was started on IV Cardizem drip on presentation now discontinue and home dose of metoprolol. Thyroid function test normal. Cardiology consulted and following, appreciate recommendations. Patient was on metoprolol 50 mg 3 times a day. Given poorly controlled heart rate with ambulation I would increase his metoprolol to 100 mg twice daily 3. Sepsis without septic shock: Mild. We'll continue antibiotics. Blood culture not sent unfortunately on presentation Lactic acid normal. 4. Bilateral lower extremity cellulitis with open ulcer on the left lower extremity probably exacerbated by edema, started on IV cefazolin since admission for 7 days. I would transition to oral Keflex today.. Local wound care. Infectious disease consulted. 5. Bilateral lower extremity swelling, secondary to underlying diastolic heart failure and chronic venous insufficiency. Ultrasound showed no evidence of DVT 6. Hypomagnesemia, replaced 7. Chronic medical problems include history of aortic valve replacement, essential hypertension, morbid obesity Repeat lab work in the morning Monitor heart rate with rest and with ambulation Anticipate discharge home tomorrow Patient is from [place] and does not have any local follow-up
[2020-05-11] MEDS: CEPHALEXIN 500 MG CAP PO SCH ×2 (17:02→20:26)
[2020-05-11] MEDS: RIVAROXABAN 20 MG TAB PO SCH (17:02)
[2020-05-11] MEDS: FUROSEMIDE 40 MG TAB PO SCH (17:02)
[2020-05-11 18:36] VITALS: BMI 52.4
[2020-05-12 06:40] LABS: African American GFR (CKD) >90 (>60 ml/min/1.73 sqM); Anion Gap 6 mmol/L; Blood Urea Nitrogen 28 mg/dL (9-20); Calcium 8.8 mg/dL (8.4-10.2); Carbon Dioxide 30 mmol/L (22-30); Chloride 100 mmol/L (98-107); Glucose 104 mg/dL (74-99); Non-African American GFR(CKD) >90 (>60 ml/min/1.73 sqM); Potassium 4.6 mmol/L (3.5-5.1); Sodium 136 mmol/L (137-145)
[2020-05-12] MEDS: HYDROcodone/APAP 7.5-325MG 1 EACH TAB PO PRN ×3 (08:41→23:46)
[2020-05-12] MEDS: METOPROLOL TARTRATE 50 MG TAB PO SCH ×2 (08:42→21:45)
[2020-05-12] MEDS: FUROSEMIDE 40 MG TAB PO SCH ×2 (08:42→16:35)
[2020-05-12] MEDS: GABAPENTIN 100 MG CAP PO SCH ×3 (08:42→21:45)
[2020-05-12] MEDS: LOSARTAN 25 MG TAB PO SCH (08:42)
[2020-05-12] MEDS: CEPHALEXIN 500 MG CAP PO SCH ×4 (08:42→21:46)
--- NOTE | 2020-05-12 10:31 | P.PN ---
Subjective Progress Note Date: 05/12/20 Principal diagnosis: Heart failure was preserved LV function This is a 49-year-old gentleman with coronary artery disease and status post CABG was performed out of this area as well as valvular heart disease as well as morbid obesity who was admitted to the hospital with heart failure. He was diagnosed was congestive heart failure secondary to diastolic dysfunction and he was started on Lasix drip. The echo revealed normal LV function was moderate LVH. The patient was seen today, 05/12/2020. Overall he is feeling better. The shortness of breath is better. The lower extremities edema is significantly improved. He continues to be in atrial fibrillation with relatively controlled heart rate. From the cardiac vascular standpoint of view, the patient can be transferred out of the 3 S. units. Objective - Vital Signs Vital signs: Vital Signs Temp 98.0 F 05/12/20 08:00 Pulse 91 05/12/20 08:00 Resp 18 05/12/20 08:00 BP 139/69 05/12/20 08:00 Pulse Ox 96 05/12/20 08:00 Intake & Output 05/11/20 05/12/20 05/12/20 18:59 06:59 18:59 Intake Total 1500 Output Total 650 300 Balance 850 -300 Weight 170.6 kg 171.5 kg Intake: Oral 1500 Output: Urine 650 300 Other: Voiding Method Urinal Urinal Urinal # Voids 0 - Constitutional General appearance: Present: no acute distress - Respiratory Respiratory: bilateral: diminished - Cardiovascular Rhythm: irregularly irregular Heart sounds: normal: S1, S2 Abnormal Heart Sounds: Present: systolic murmur - Labs CBC & Chem 7: 05/11/20 05:26 05/12/20 06:08 Labs: Abnormal Lab Results - Last 24 Hours (Table) 05/12/20 Range/Units 06:08 Sodium 136 L (137-145) mmol/L BUN 28 H (9-20) mg/dL Glucose 104 H (74-99) mg/dL Assessment and Plan Assessment: Assessment #1 acute exacerbation of congestive heart failure secondary to diastole dysfunction #2 long-standing persistent atrial fibrillation on oral anticoagulation #3 coronary artery disease #4 valvular heart disease Plan #1 continue the current medical regimen #2 the patient can be transferred out of the unit
--- NOTE | 2020-05-12 10:40 | P.PN ---
Subjective Progress Note Date: 05/12/20 Patient continues to report weakness and fear of ambulating large distances. He is not quite sure he is up to speed, and whether he has the strength to take care of himself at home. He has not done much walking outside of his room, to the bathroom and back. He continues complaining of pain in the right lower extremity and left lower extremity, worse the left from the cellulitis. Objective - Vital Signs Vital signs: Vital Signs Temp 98.0 F 05/12/20 08:00 Pulse 91 05/12/20 08:00 Resp 18 05/12/20 08:00 BP 139/69 05/12/20 08:00 Pulse Ox 96 05/12/20 08:00 Intake & Output 05/11/20 05/12/20 05/12/20 18:59 06:59 18:59 Intake Total 1500 Output Total 650 300 Balance 850 -300 Weight 170.6 kg 171.5 kg Intake: Oral 1500 Output: Urine 650 300 Other: Voiding Method Urinal Urinal Urinal # Voids 0 - Exam Gen: awake, alert HEENT: normocephalic, atraumatic, good hearing acuity, moist mucous membranes Resp: CTAB, good air exchange, no accessory muscle use, no wheezes, crackles, rhonchi CVS: good distal perfusion x 4, RRR, no murmurs, clicks, gallops GI: soft, NTTP, ND : no SPT, no CVAT, [place] catheter not present MSK: b/l pitting edema, no clubbing, onychomycosis b/l Neuro: non-focal, no sensory deficits, appropriate tone Psych: cooperative, euthymic mood - Labs CBC & Chem 7: 05/11/20 05:26 05/12/20 06:08 Labs: Abnormal Lab Results - Last 24 Hours (Table) 05/12/20 Range/Units 06:08 Sodium 136 L (137-145) mmol/L BUN 28 H (9-20) mg/dL Glucose 104 H (74-99) mg/dL Assessment and Plan Assessment: 1. Acute diastolic heart failure exacerbation, started on IV Lasix 40 mg every 8 hours with minimal improvement and switched to IV Lasix drip at 10 mg per hour and today was transitioned back to oral Lasix 40 mg twice daily.. Strict I's and O's. Daily weights. Echocardiogram showed preserved EF of 55%. 2. Atrial fibrillation with rapid ventricular response, on anticoagulation with Rivaroxaban. Patient was started on IV Cardizem drip on presentation now discontinue and home dose of metoprolol. Thyroid function test normal. Cardiology consulted and following, appreciate recommendations. Patient was on metoprolol 50 mg 3 times a day. Given poorly controlled heart rate during ambulation, metoprolol increased to 100 mg twice daily 3. Sepsis without septic shock: Mild. We'll continue antibiotics. Blood culture not sent unfortunately on presentation Lactic acid normal. 4. Bilateral lower extremity cellulitis with open ulcer on the left lower extremity probably exacerbated by edema, started on IV cefazolin since admission for 7 days. Now on oral keflex. Local wound care. Infectious disease consulted. 5. Bilateral lower extremity swelling, secondary to underlying diastolic heart failure and chronic venous insufficiency. Ultrasound showed no evidence of DVT 6. Hypomagnesemia, replaced 7. Chronic medical problems include history of aortic valve replacement, essential hypertension, morbid obesity Monitor heart rate with rest and with ambulation Anticipate discharge home tomorrow, pending PT/OT evaluation for home safety needs Patient is from [place] and does not have any local follow-up, can offer home nursing, but will require pay out of pocket - to coordinate
--- NOTE | 2020-05-12 15:39 | PN ---
PROGRESS NOTE DATE OF SERVICE: 05/12/2020. REASON FOR FOLLOWUP: Bilateral lower extremity cellulitis. INTERVAL HISTORY: The patient is currently afebrile. Has been breathing comfortably, no chest pain or shortness of breath. No abdominal pain. The bilateral edema has decreased. PHYSICAL EXAMINATION: Blood pressure 155/57, pulse of 91, temperature is 98, he is 93% on room air. General description is a middle-aged male up in the bed in no distress. RESPIRATORY SYSTEM: Unlabored breathing, clear to auscultation anteriorly. HEART: S1, S2, regular rate and rhythm. ABDOMEN: Soft, no tenderness. LABS: BUN of 28, creatinine 0.70. IMPRESSION: Bilateral lower extremity wounds with cellulitis. Patient is currently on oral Keflex along with . and close outpatient followup. MMODL / IJN: [id number] /
[2020-05-12] MEDS: RIVAROXABAN 20 MG TAB PO SCH (16:35)
[2020-05-12] MEDS: ACETAMINOPHEN TAB 325 MG TAB PO PRN (21:43)
[2020-05-13 04:18] VITALS: RESP 18
[2020-05-13] MEDS: GABAPENTIN 100 MG CAP PO SCH ×2 (08:50→16:08)
[2020-05-13] MEDS: FUROSEMIDE 40 MG TAB PO SCH ×2 (08:50→16:08)
[2020-05-13] MEDS: LOSARTAN 25 MG TAB PO SCH (08:50)
[2020-05-13] MEDS: METOPROLOL TARTRATE 50 MG TAB PO SCH (08:50)
[2020-05-13] MEDS: CEPHALEXIN 500 MG CAP PO SCH ×2 (08:50→13:16)
[2020-05-13 12:10] VITALS: BP 148/94; PULSE 104; TEMP 97.6
--- NOTE | 2020-05-13 14:23 | PN ---
PROGRESS NOTE DATE OF SERVICE: 05/13/2020 REASON FOR FOLLOWUP: Bilateral lower extremity venostasis ulcer and cellulitis. INTERVAL HISTORY: Patient is currently afebrile, patient is breathing comfortably. The patient denies having any chest pain, occasional cough, overall pain discomfort in the leg has decreased. PHYSICAL EXAMINATION: His blood pressure 142/94 with a pulse of 104, temp 97.6. He is 97% on room air. General description is a middle-aged male, up in the chair in no distress. RESPIRATORY SYSTEM: Unlabored breathing, clear to auscultation anteriorly. HEART: S1, S2. Regular rate and rhythm. ABDOMEN: Soft, no tenderness. Legs are currently wrapped up with no obvious drainage on the dressing. LABS: BUN of 28, creatinine 0.70. DIAGNOSTIC IMPRESSION AND PLAN: Patient with bilateral lower extremity venostasis ulcer and cellulitis, in this patient with overall improvement on cefazolin. Currently on Keflex today for about a week. Local care to continue with the dry Aquacel dressing and Kayode wrap to keep the swelling down, continue supportive care. MMODL / IJN: [id number] /
--- NOTE | 2020-05-13 18:28 | P.DS ---
Providers Date of admission: 05/05/20 06:13 Expected date of discharge: 05/13/20 Attending physician: Gifty Barger MD Consults: 05/05/20 06:13 Consult Physician Urgent Consulting Provider: Bryce Templeton Consult Reason/Comments: afib Do you want consulting provider notified?: Yes 05/05/20 11:57 Consult Physician Routine Consulting Provider: Shanell Maldonado Consult Reason/Comments: cellulitis Do you want consulting provider notified?: Yes Primary care physician: Physician Nonstaff Hospital Course: 49-year-old male with PMH of hypertension and atrial fibrillation, CAD, history of aortic valve replacement presented to the ED for chest tightness and worsening lower extremity edema. There is questionable medication noncompliance. EKG done in the ED showed atrial fibrillation with a ventricular rate of 132. He was admitted for further management and observation. He was initially started on Lasix 40 mg IV 3 times a day for treatment of acute systolic heart failure. His CHF exacerbation gradually improved and he was transitioned to Lasix by mouth. Started on Cardizem drip for A. fib with RVR and home dose of metoprolol was restarted. His A. fib with RVR gradually improved and he was transitioned to metoprolol by mouth. Xarelto was restarted for anticoagulation. Patient was also noted to have bilateral lower extremity cellulitis for which he was started on cefazolin IV and ID was consulted. ID recommended Keflex on discharge. Local wound care was recommended for open ulcer in the left lower extremity. PT and OT evaluated the patient and included the patient for discharge. Patient was seen and examined. No acute events overnight. Patient reports generalized weakness. He denies any chest pain or palpitations. Complains of mild shortness of breath and getting winded with ambulation to the bathroom. He denies any nausea or vomiting. No fever or chills. General: [non toxic], [no distress], [appears at stated age] Derm: [warm], [dry] Head: [atraumatic], [normocephalic], [symmetric] Eyes: [EOMI], [no lid lag], [anicteric sclera] Mouth: [no lip lesion], [mucus membranes moist] Cardiovascular: [S1S2 irregular], [no murmur], [positive DP pulse bilateral], Lungs: [CTA bilateral], [no rhonchi, no rales] , [no accessory muscle use] Abdominal: [soft], [ nontender to palpation], [no guarding], [no appreciable organomegaly] Ext: [no gross muscle atrophy], [no edema], [no contractures], bilateral lower extremities Kayode wrapped Neuro: [no focal neuro deficits] Psych: [Alert], [oriented], [appropriate affect] 1. Acute diastolic heart failure exacerbation, started on IV Lasix 40 mg every 8 hours with minimal improvement and switched to IV Lasix drip at 10 mg per hour and today was transitioned back to oral Lasix 40 mg twice daily.. Strict I's and O's. Daily weights. Echocardiogram showed preserved EF of 55%. 2. Atrial fibrillation with rapid ventricular response, on anticoagulation with Rivaroxaban. Patient was started on IV Cardizem drip on presentation now discontinue and home dose of metoprolol. Thyroid function test normal. Cardiology consulted and following, appreciate recommendations. Patient was on metoprolol 50 mg 3 times a day. Given poorly controlled heart rate during ambulation, metoprolol increased to 100 mg twice daily 3. Sepsis without septic shock: Mild. We'll continue antibiotics. Blood culture not sent unfortunately on presentation Lactic acid normal. 4. Bilateral lower extremity cellulitis with open ulcer on the left lower extremity probably exacerbated by edema, started on IV cefazolin since admission for 7 days. Now on oral keflex. Local wound care. Infectious disease consulted. Continue Keflex for 5 more days. 5. Bilateral lower extremity swelling, secondary to underlying diastolic heart failure and chronic venous insufficiency. Ultrasound showed no evidence of DVT 6. Hypomagnesemia, replaced 7. Chronic medical problems include history of aortic valve replacement, essential hypertension, morbid obesity Plans on DC home today with PT clearance. Medications to bedside PRIOR TO DISCHARGE. Follow cardiology within 2 weeks. Follow-up with PCP within 3 days of discharge. This complex discharge took 35 minutes to complete. Pertinent Studies: Venous Doppler, echocardiogram, chest x-ray Patient Condition at Discharge: Good Plan - Discharge Summary New Discharge Prescriptions: New Losartan [Cozaar] 25 mg PO DAILY #30 tab Cephalexin [Keflex] 500 mg PO QID #20 cap Furosemide [Lasix] 40 mg PO BID@0900,1600 #60 tab Metoprolol Tartrate [Lopressor] 100 mg PO BID #120 tab Gabapentin [Neurontin] 100 mg PO TID #90 cap HYDROcodone/APAP 7.5-325MG [[place] 7.5-325] 1 each PO Q4H PRN #18 tab PRN Reason: Pain SILVER sulfADIAZINE CREAM [Silvadene Cream] 1 applic TOPICAL DAILY applic Continue Rivaroxaban [Xarelto] 20 mg PO HS #30 tab Discontinued Metoprolol Tartrate [Lopressor] 50 mg PO BID-W/MEALS Losartan Potassium [Cozaar] 50 mg PO DAILY Amoxicillin 500 mg PO DAILY Furosemide [Lasix] 20 mg PO BID Discharge Medication List Cephalexin [Keflex] 500 mg PO QID #20 cap 05/13/20 [Rx] Furosemide [Lasix] 40 mg PO BID@0900,1600 #60 tab 05/13/20 [Rx] Gabapentin [Neurontin] 100 mg PO TID #90 cap 05/13/20 [Rx] HYDROcodone/APAP 7.5-325MG [[place] 7.5-325] 1 each PO Q4H PRN #18 tab 05/13/20 [Rx] Losartan [Cozaar] 25 mg PO DAILY #30 tab 05/13/20 [Rx] Metoprolol Tartrate [Lopressor] 100 mg PO BID #120 tab 05/13/20 [Rx] Rivaroxaban [Xarelto] 20 mg PO HS #30 tab 05/13/20 [Rx] SILVER sulfADIAZINE CREAM [Silvadene Cream] 1 applic TOPICAL DAILY applic 05/13/20 [Rx] Follow up Appointment(s)/Referral(s): [facility], [NON-STAFF] - Nonstaff,Physician [Primary Care Provider] - 1-2 days (Patient to follow-up with a medical physician of his choice in 1-2 days) Chris Boyd MD [STAFF PHYSICIAN] - 2 Weeks (Clinical Biostatistics Director - office to call you with appt. time and date.) Patient Instructions/Handouts: Cephalexin (By mouth), Furosemide (By mouth), Hydrocodone/Acetaminophen (By mouth), Gabapentin (By mouth), Losartan (By mouth), Rivaroxaban (By mouth), A-fib (Atrial Fibrillation) (DC), Cellulitis (DC) Activity/Diet/Wound Care/Special Instructions: Wound Care - Dry Aquacel silver dressing and KAYODE wrap from just above the toe to below the knee daily Follow up with primary care physician within 1-2 days of discharge. Follow up with Cardiology within 1 week. Take all meds as advised. Come back to Emergency Center or call 911 for worsening Shortness of breath, Chest pain, palpitations, or dizziness. Discharge Disposition: HOME SELF-CARE
== END 2020-05-13 18:05 | disposition home health service (06) | DRG 871 ==
LOC: EC 04:38 → 3SCARD 06:13 → 5NMEDONC 05-12 21:04
PROVIDERS: ADMIT Internal Medicine; ATTEND Internal Medicine
DX: A41.9 Sepsis, unspecified organism (principal); I50.33 Acute on chronic diastolic (congestive) heart failure; Z68.43 Body mass index [BMI] 50.0-59.9, adult; I48.21 Permanent atrial fibrillation; L97.921 Non-pressure chronic ulcer of unspecified part of left lower leg limited to breakdown of skin; L97.911 Non-pressure chronic ulcer of unspecified part of right lower leg limited to breakdown of skin; L03.115 Cellulitis of right lower limb; L03.116 Cellulitis of left lower limb; Z20.828 Contact with and (suspected) exposure to other viral communicable diseases; I83.009 Varicose veins of unspecified lower extremity with ulcer of unspecified site; I11.0 Hypertensive heart disease with heart failure; E66.01 Morbid (severe) obesity due to excess calories; I25.10 Atherosclerotic heart disease of native coronary artery without angina pectoris; I87.2 Venous insufficiency (chronic) (peripheral); E83.42 Hypomagnesemia; Z71.3 Dietary counseling and surveillance; Z79.899 Other long term (current) drug therapy; Z79.01 Long term (current) use of anticoagulants; Z95.2 Presence of prosthetic heart valve; Z87.891 Personal history of nicotine dependence; Z91.14 Patient's other noncompliance with medication regimen; Z95.1 Presence of aortocoronary bypass graft
CPT/HCPCS: 36415; 71046; 80048; 80053; 80061; 81003; 82550; 83605; 83735; 83880; 84100; 84443; 84484; 85025; 85027; 85610; 85730; 93005; 93306; 93970; 96365; 96366; 96368; 96375; 96376; 99291